=== PATIENT | female | born 1990 | race Caucasian/White ===

== ENCOUNTER 2018-11-07 14:20 | Outpatient (CLI) | payer OTHER, SELFPAY ==
[2018-11-07 15:04] LABS: Abs Immature Grans 0.04 k/cumm (0.0-0.09); Absolute Basophil Count 0.02 k/cumm (0.0-0.2); Absolute Eosinophil Count 0.08 k/cumm (0.0-0.7); Absolute Lymphocyte Count 2.24 k/cumm (1.2-3.4); Basophils % 0.2; Eosinophils % 0.7; HCT 39.5 % (36.0-46.0); HGB 13.6 g/dL (12.0-15.5); Immature Grans % 0.4; Lymphocytes % 19.9; Mean Corp. HGB Concentration 34.4 g/dL (32.0-36.0); Mean Corpuscular Hemoglobin 30.3 pg (27.0-33.0); Mean Platelet Volume 10.8 fL (8.0-11.0); Monocytes % 5.1; Neutrophils % 73.7; Platelet Count 226 x1000/uL (130-400); RBC 4.49 m/cumm (4.00-5.20); RBC Distribution Width 12.4 % (11.7-14.6); White Blood Cell Count 11.28 k/cumm (4.4-10.8)
[2018-11-07 15:06] LABS: Absolute Monocyte Count 0.58 k/cumm (0.11-0.7); Absolute Neutrophil Count 8.31 k/cumm (1.2-6.7)
[2018-11-07 15:25] LABS: TSH (W/Ref FT4) 0.92 uIU/mL (0.358-3.74)
[2018-11-08 11:10] LABS: Hepatitis B Surface Ag Negative (NEGAT)
[2018-11-08 11:14] LABS: HIV-1/2 Ag & Ab Screen Negative (NEGAT)
[2018-11-08 11:15] LABS: Hepatitis C Ab w Rflx HCV PCR Negative (NEGAT)
[2018-11-08 12:59] LABS: Rubella IgG Ab (UVM) Positive; Syphilis Serology (RPR) Negative (Negative); Varicella IgG Antibody Positive
== END 2018-11-07 14:40 ==
LOC: LBN 16:17 → LBO 11-08 13:57
PROVIDERS: PCP Nurse Practitioner Family; Visit Provider Advanced Practice Midwife
DX: Z34.91 Encounter for supervision of normal pregnancy, unspecified, first trimester (principal); Z01.84 Encounter for antibody response examination; Z11.59 Encounter for screening for other viral diseases; Z11.4 Encounter for screening for human immunodeficiency virus [HIV]
CPT/HCPCS: 36415; 80055; 86787; 86803; 86850; 86900; 86901; 87340; 87389; 82947; 84443; 86592; 86762

== ENCOUNTER 2018-11-07 16:17 | Outpatient (REF) | payer OTHER, SELFPAY ==
[2018-11-07 18:46] LABS: Tricyclic Antidepressants Negative (Negative)
[2018-11-07 20:29] LABS: *AMPHETAMINES SCREEN URINE Negative (Negative); *BARBITURATES SCREEN URINE Negative (Negative); *BENZODIAZEPINES SCREEN URINE Negative (Negative); Cannabinoids THC Negative (Negative); Cocaine Screen,Urine Negative (Negative); METHADONE URINE SCREEN Negative (Negative); OPIATES URINE SCREEN Negative (Negative)
[2018-11-11 16:25] LABS: Chlamydia Result Negative; GC Result Negative; Specimen Description CERVIX
[2018-11-15 10:36] LABS: Buprenorphine Negative; Norbuprenorphine Negative
== END 2018-11-07 16:37 ==
LOC: LBN 16:17
PROVIDERS: PCP Nurse Practitioner Family; Visit Provider Advanced Practice Midwife
DX: Z34.91 Encounter for supervision of normal pregnancy, unspecified, first trimester (principal); Z11.3 Encounter for screening for infections with a predominantly sexual mode of transmission
CPT/HCPCS: 80307; 87491; 87591; 87086

== ENCOUNTER 2018-11-22 02:25 | Outpatient (CLI) | payer OTHER, SELFPAY ==
[2018-11-22 09:09] LABS: Glucose 1 Hour 98 mg/dL
[2018-11-22 12:08] LABS: Glucose 3 Hour 79 mg/dL
== END 2018-11-22 02:45 ==
PROVIDERS: Advanced Practice Midwife; PCP Nurse Practitioner Family; Visit Provider Advanced Practice Midwife
DX: R73.09 Other abnormal glucose (principal)
CPT/HCPCS: 36415; 82951

== ENCOUNTER 2018-12-30 08:26 | Outpatient (CLI) | payer OTHER, SELFPAY ==
[2018-12-30 08:55] LABS: Kit/Specimen SENT
== END 2018-12-30 08:46 ==
PROVIDERS: PCP Nurse Practitioner Family; Visit Provider Advanced Practice Midwife
DX: Z34.01 Encounter for supervision of normal first pregnancy, first trimester (principal)
CPT/HCPCS: 36415

== ENCOUNTER 2019-01-17 00:31 | Outpatient (CLI) | payer OTHER, SELFPAY ==
--- NOTE | 2019-01-17 11:45 | DI.US_ITS ---
SYMPTOMS/DIAGNOSIS: 18-WEEK ANATOMY SURVEY, Z34.90 OB ULTRASOUND: Many abnormalities cannot be diagnosed. A normal exam does not exclude a congenital anomaly. Radiology No. [id number] LMP: Exam Date: 01/17/19 [facility] wks days on EDC ([facility]) 06/16/19 Confirmed: HISTORY: PREDICTED GESTATIONAL AGE NUMBER 18+4 weeks with a range of 17+4s weeks to 19+4 weeks. 1 Determined by___1STUS___LMP_X__HISTORY PLACENTA PRESENTATION Grade I Cephalic_X__ Anterior_X__Posterior___ Breech____ Right Left Transverse(head right___ Fundal___Low-lying_X__Previa___ Transverse(head left___ Varying BIOMETRY AMNIOTIC FLUID BPD: 44 mm 19+1 weeks Normal HC: 158 mm 18+5 weeks AC: 138 mm 19+1 weeks FL: 28 mm 18+5 weeks AMNIOTIC FLUID INDEX >26 WK CRL: mm weeks Cisterna Magna: 2.1 mm CI: 91 RUQ: LUQ Cerebellum: 1.9 cm EFW: 266 grams Percentile: 69th RLQ: LLQ Total: cms Composite AGE= 19 wks EDC by US: 06/13/19 BIOPHYSICAL PROFILE ANATOMY IDENTIFIED SCORE 0/2 Heart: 4-Chamber_X__Rate:BPM LVOT:___X RVOT:__X Amniotic Fluid(>2cms)____ Stomach:_X Kidneys:___X____ Respirations (>30 secs) Bladder:__X Post. Fossa:___X Body Flex/Extension 3-vessel cord:____X___Ventricles:____X Cord insertion:__X___ Lips:_X___ Extremity Flex/Extension Spinal morphology:_X Nose:__X___ Total Score= Palate:___X____ NS=not seen COMMENTS: The cervix shows a normal length of 7 cm. The placenta is anterior. There is a low-lying placenta with the tip 9 mm from the internal os. The fetus is in cephalic position. The biometric measurements correspond to 19 weeks 0 days. No abnormality is seen. The amniotic fluid amount appears normal. IMPRESSION: Low-lying placenta.
[2019-01-20 16:04] LABS: AFP 54.6 ng/mL; Calculated age at EDD 26 years; Cigarette smoking status non-smoker; GA used in risk estimate Scan estimate; IVF Pregnancy No; Initial or repeat testing Initial testing; Insulin dependent diabetes No; Maternal Weight 203 lbs; Number of Fetuses 1; Physician Phone Number 802-748-7300; Prev Pregnancy w/NTD No; RECOMMENDED FOLLOW UP None.; Results Summary Normal risk
[2019-01-22 22:52] LABS: Result Summary NEGATIVE; Specimen WB Whole Blood
[2019-01-23 14:36] LABS: Specimen WB Whole Blood
== END 2019-01-17 00:51 ==
PROVIDERS: Advanced Practice Midwife; PCP Nurse Practitioner Family; Visit Provider Advanced Practice Midwife
DX: Z34.92 Encounter for supervision of normal pregnancy, unspecified, second trimester (principal); O44.42 Low lying placenta NOS or without hemorrhage, second trimester; Z36.89 Encounter for other specified antenatal screening
CPT/HCPCS: 36415; 81329; 76805; 81220; 82105

== ENCOUNTER 2019-03-28 01:45 | Outpatient (CLI) | payer OTHER, SELFPAY ==
--- NOTE | 2019-03-28 11:04 | DI.US_ITS ---
SYMPTOMS/DIAGNOSIS: LOW-LYING PLACENTA, CHECK FOR MIGRATION, Z34.90 LIMITED OB ULTRASOUND: Predicted Gestational Age: Indication/History: 28+4 Wks Range: to Prior US done on: 06/16/18 Determined by: First US LMP History EDC by prior US: For multiple gestations: Baby PLACENTA: Grade: II-III Location: X Anterior Posterior PRESENTATION: RT LT LOW LYING PREVIA Cephalic X Trans (Head RT LT ) Varied Breech BIOMETRY: Anatomy Identified: BPD: mm wks 4 chamber Heart Heart Rate 144 BPM HC: mm wks LVOT Post Fossa AC: mm wks RVOT Ventricles FL: mm wks Stomach Nose Bladder Lips Cisterna Magna: mm CI: Kidneys Palate Cerebellum: mm 3 vessel cord Spine EFW: grms % Cord Insertion NS= not seen Composite Age (US) wks Many abnormalities cannot be diagnosed. A normal exam does not exclude congenital abnormality. EDC by US Amniotic Fluid Index: Normal COMMENTS: Cervical length 4.6 cm, placental tip to internal os 7.7 cm RUQ: LUQ: RLQ: LLQ: Total: cm Biophysical Profile: Score 0/2 RAISSA (>2cm) Respirations (>30 sec) Body flexion/extension Extremity flexion/extension TOTAL SCORE OB ultrasound was performed utilizing third trimester protocol. Previous examination showed low-lying placenta. Placenta is posterior and is remote from the cervical os. No placenta previa. biometry is consistent with gestational age of 33 weeks 2 days and an EDC of 05/14/19. Estimated weight is 2115 g, which is at the 61st percentile for predicted gestational age. There is visually a normal quantity of amniotic fluid and the RAISSA is 8. cardiac activity observed at a rate of 144 bpm.
[2019-03-28 11:14] LABS: HCT 35.8 % (36.0-46.0); HGB 12.4 g/dL (12.0-15.5); Mean Corp. HGB Concentration 34.6 g/dL (32.0-36.0); Mean Corpuscular Hemoglobin 30.7 pg (27.0-33.0); Mean Corpuscular Volume 88.6 fL (80-95); Mean Platelet Volume 11.7 fL (8.0-11.0); Platelet Count 201 x1000/uL (130-400); RBC 4.04 m/cumm (4.00-5.20); RBC Distribution Width 13.3 % (11.7-14.6); White Blood Cell Count 15.28 k/cumm (4.4-10.8)
[2019-03-28 11:26] LABS: Glucose,1 Hr (Glucola) 94 mg/dL (80-140)
== END 2019-03-28 02:05 ==
PROVIDERS: PCP Nurse Practitioner Family; Visit Provider Advanced Practice Midwife
DX: Z34.93 Encounter for supervision of normal pregnancy, unspecified, third trimester (principal); Z36.2 Encounter for other antenatal screening follow-up
CPT/HCPCS: 36415; 76815; 82950; 85027

== ENCOUNTER 2019-05-23 18:15 | Outpatient (REF) | payer OTHER, SELFPAY | END 2019-05-23 18:35 | LOC: LBN 18:15 | PROVIDERS: PCP Nurse Practitioner Family; Visit Provider Advanced Practice Midwife | DX: Z34.93 Encounter for supervision of normal pregnancy, unspecified, third trimester (principal); Z36.85 Encounter for antenatal screening for Streptococcus B | CPT/HCPCS: 87081 ==

== ENCOUNTER 2019-05-30 16:42 | Outpatient (REF) | payer OTHER, SELFPAY ==
[2019-05-30 17:23] LABS: *AMPHETAMINES SCREEN URINE Negative (Negative); *BARBITURATES SCREEN URINE Negative (Negative); *BENZODIAZEPINES SCREEN URINE Negative (Negative); Cannabinoids THC Negative (Negative); Cocaine Screen,Urine Negative (Negative); METHADONE URINE SCREEN Negative (Negative); OPIATES URINE SCREEN Negative (Negative)
[2019-05-30 17:24] LABS: Tricyclic Antidepressants Negative (Negative)
[2019-06-05 12:25] LABS: Buprenorphine Negative; Norbuprenorphine Negative
== END 2019-05-30 17:02 ==
LOC: LBN 16:42
PROVIDERS: PCP Nurse Practitioner Family; Visit Provider Advanced Practice Midwife
DX: Z34.93 Encounter for supervision of normal pregnancy, unspecified, third trimester (principal)
CPT/HCPCS: 80307

== ENCOUNTER 2019-06-18 06:49 | Inpatient (IN) | payer OTHER, SELFPAY ==
[2019-06-18 07:41] LABS: ROM Plus Positive
[2019-06-18 08:58] LABS: HCT 34.8 % (36.0-46.0); HGB 11.6 g/dL (12.0-15.5); Mean Corp. HGB Concentration 33.3 g/dL (32.0-36.0); Mean Corpuscular Hemoglobin 29.1 pg (27.0-33.0); Mean Corpuscular Volume 87.2 fL (80-95); Mean Platelet Volume 12.5 fL (8.0-11.0); Platelet Count 170 x1000/uL (130-400); RBC 3.99 m/cumm (4.00-5.20); RBC Distribution Width 13.2 % (11.7-14.6); White Blood Cell Count 24.06 k/cumm (4.4-10.8)
[2019-06-18] MEDS: Oxytocin 10 UNITS/ML VIAL IM (10:10)
[2019-06-18] MEDS: Lidocaine 1% Multi-Dose 20 ML VIAL (10:10)
[2019-06-18] MEDS: Hamamelis Leaf/Glycerin 100 EACH BOX PR (16:13)
[2019-06-18] MEDS: Ibuprofen 600 MG TAB PO (23:31)
[2019-06-18] MEDS: Acetaminophen 325 MG TAB 650 MG PO (23:32)
[2019-06-19 07:14] LABS: HCT 26.6 % (36.0-46.0); HGB 8.7 g/dL (12.0-15.5); Mean Corp. HGB Concentration 32.7 g/dL (32.0-36.0); Mean Corpuscular Hemoglobin 28.9 pg (27.0-33.0); Mean Corpuscular Volume 88.4 fL (80-95); Mean Platelet Volume 12.3 fL (8.0-11.0); Platelet Count 167 x1000/uL (130-400); RBC 3.01 m/cumm (4.00-5.20); RBC Distribution Width 13.2 % (11.7-14.6); White Blood Cell Count 22.51 k/cumm (4.4-10.8)
[2019-06-19] MEDS: Acetaminophen 325 MG TAB 650 MG PO (16:13)
[2019-06-19] MEDS: Ibuprofen 600 MG TAB PO (16:14)
== END 2019-06-20 13:30 | disposition home or self-care (01) | DRG 807 ==
PROVIDERS: Advanced Practice Midwife; Admitting Provider Advanced Practice Midwife; PCP Nurse Practitioner Family; Visit Provider Advanced Practice Midwife
DX: O70.1 Second degree perineal laceration during delivery (principal); Z37.0 Single live birth; Z3A.40 40 weeks gestation of pregnancy; O48.0 Post-term pregnancy; O69.3XX0 Labor and delivery complicated by short cord, not applicable or unspecified; O90.81 Anemia of the puerperium; D64.89 Other specified anemias
CPT/HCPCS: 36415; 84112; 85027; J3490

== ENCOUNTER 2019-07-28 14:29 | Outpatient (CLI) | payer OTHER, SELFPAY ==
[2019-07-28 14:51] LABS: HGB 11.3 g/dL (12.0-15.5); Mean Corp. HGB Concentration 31.4 g/dL (32.0-36.0); Mean Corpuscular Hemoglobin 26.8 pg (27.0-33.0); Mean Corpuscular Volume 85.3 fL (80-95); Mean Platelet Volume 10.8 fL (8.0-11.0); Platelet Count 335 x1000/uL (130-400); RBC 4.22 m/cumm (4.00-5.20); RBC Distribution Width 14.1 % (11.7-14.6); White Blood Cell Count 9.41 k/cumm (4.4-10.8)
[2019-07-28 16:21] LABS: ALT 18 U/L (14-59); Albumin 3.9 g/dL (3.4-5.0); Alkaline Phosphatase 72 U/L (46-116); Anion Gap 11.2 mmol/L (3-11); BUN 18 mg/dL (7-18); Bilirubin, Total 0.2 mg/dL (0.2-1.0); CO2 24.8 mmol/L (21.0-32.0); CREATININE 0.88 mg/dL (0.55-1.02); Chloride 104 mmol/L (98-107); Glucose 90 mg/dL (70-100); Sodium 140 mmol/L (136-145); Total Protein 7.5 g/dL (6.4-8.2)
[2019-07-28 16:38] LABS: AST 10 U/L (15-37)
== END 2019-07-28 14:49 ==
PROVIDERS: PCP Nurse Practitioner Family; Visit Provider Advanced Practice Midwife
DX: Z39.2 Encounter for routine postpartum follow-up (principal); O92.79 Other disorders of lactation
CPT/HCPCS: 36415; 80053; 85027

== ENCOUNTER 2019-09-03 10:26 | Outpatient (CLI) | payer OTHER, SELFPAY ==
[2019-09-03 10:48] LABS: HCT 39.1 % (36.0-46.0); HGB 12.6 g/dL (12.0-15.5); Mean Corp. HGB Concentration 32.2 g/dL (32.0-36.0); Mean Corpuscular Hemoglobin 26.5 pg (27.0-33.0); Mean Corpuscular Volume 82.1 fL (80-95); Mean Platelet Volume 11.1 fL (8.0-11.0); Platelet Count 295 x1000/uL (130-400); RBC 4.76 m/cumm (4.00-5.20); White Blood Cell Count 9.42 k/cumm (4.4-10.8)
[2019-09-03 11:37] LABS: ALT 16 U/L (14-59); AST 9 U/L (15-37); Albumin 4.1 g/dL (3.4-5.0); Alkaline Phosphatase 73 U/L (46-116); Anion Gap 10.1 mmol/L (3-11); BUN 13 mg/dL (7-18); Bilirubin, Total 0.3 mg/dL (0.2-1.0); CO2 26.9 mmol/L (21.0-32.0); Calcium 9.1 mg/dL (8.5-10.1); Chloride 105 mmol/L (98-107); Glucose 85 mg/dL (70-100); Sodium 142 mmol/L (136-145); Total Protein 7.7 g/dL (6.4-8.2)
== END 2019-09-03 10:46 ==
PROVIDERS: PCP Nurse Practitioner Family; Visit Provider Advanced Practice Midwife
DX: R60.9 Edema, unspecified
CPT/HCPCS: 36415; 80053; 85027

== ENCOUNTER 2019-09-04 14:25 | Outpatient (REF) | payer OTHER, SELFPAY ==
[2019-09-04 22:52] LABS: C-Reactive Protein 0.91 mg/dL (0.0-0.3)
[2019-09-04 23:25] LABS: ESR 24 mm/hr (0-20)
[2019-09-07 19:01] LABS: Anaplasma phagocytophilum Negative (Negative); B. miyamotoi PCR Negative (Negative); Babesia divergens/MO-1 Negative (Negative); Babesia duncani Negative (Negative); Babesia microti Negative (Negative); Ehrlichia chaffeensis Negative (Negative); Ehrlichia ewingii/canis Negative (Negative); Ehrlichia muris eauclairensis Negative (Negative)
[2019-09-08 09:29] LABS: Cyclic Citrullinated Peptide <2.5 U/mL (<5.0)
[2019-09-08 10:41] LABS: Rheumatoid Factor 8 IU/mL (<12.5)
[2019-09-08 13:15] LABS: Lyme Ab w Rflx to Lyme Confirm Negative
[2019-09-09 14:13] LABS: ANA Interpretation Positive (NEGAT); ANA Titer Pattern SEE COMMENTS
== END 2019-09-04 14:45 ==
LOC: NCHCN 14:25
PROVIDERS: PCP Nurse Practitioner Family; Visit Provider Nurse Practitioner Family
DX: M25.561 Pain in right knee (principal); M25.562 Pain in left knee
CPT/HCPCS: 85652; 86200; 87798; 86038; 86140; 86431; 86618

== ENCOUNTER 2020-06-16 12:33 | Outpatient (REF) | payer OTHER, SELFPAY ==
--- NOTE | 2020-06-16 10:30 | PAPFT_PTH ---
PATIENT: Katarina Sánchez LOC: [facility]#:[id number] AGE/SX: 29/F ROOM: RE06/16/[address]: Cindy Ravi : 1990 BED: DIS: 06/16/2020 SPEC #: [id number] RECD: 06/17/20 12:56 STATUS: YOLY REStephanie #: [id number] ONDINA: 06/16/20 10:[address]: Cindy Ravi DEPT: [facility] Cytology RECD BY: Susan Saunders ENTERED: 06/17/20 12:57 SP TYPE: PAPFT OTHR DR: Estela Gerber Tissues: 1 - CX/ENDOCX FOR PAP SMEARS Procedures: PAP THIN PREP/[facility] Screening Comments: [id number] (CHLAMYDIA/GC)
[2020-06-18 14:31] LABS: Chlamydia Result Negative (Negative); GC Result Negative (Negative)
== END 2020-06-16 12:53 ==
LOC: NCHCN 12:33
PROVIDERS: PCP Nurse Practitioner Family
DX: Z11.3 Encounter for screening for infections with a predominantly sexual mode of transmission (principal)
CPT/HCPCS: 87491; 87591; 88142

== ENCOUNTER 2020-07-13 01:05 | Outpatient (CLI) | payer OTHER, SELFPAY ==
--- NOTE | 2020-07-13 07:00 | DI.US_ITS ---
EXAM: US SOFT TISS EXTREMITY/GROIN CLINICAL HISTORY: Right groin mass,R19.09 TECHNIQUE: Ultrasound performed using standard protocol. COMPARISON: US US OB 2-3 trimester from 03/28/2019 FINDINGS: Ultrasound examination of the right inguinal region was performed to evaluate questionable palpable a bnormality. The palpable abnormality corresponds to an 11 x 5 x 14 millimeter in diameter lymph node with normal anatomy, this appears to be a bilobed node. Smaller lymph nodes with an unremarkable ar chitecture also seen in this region. No non valentin mass identified. No hernia seen. IMPRESSION: Unremarkable appearance right inguinal lymph nodes as described above. DATA REPOSITORY:
== END 2020-07-13 01:25 ==
PROVIDERS: PCP Nurse Practitioner Family; Visit Provider Surgery
DX: R19.09 Other intra-abdominal and pelvic swelling, mass and lump (principal)
CPT/HCPCS: 76882

== ENCOUNTER 2020-08-23 01:31 | Outpatient (CLI) | payer OTHER, SELFPAY ==
[2020-08-23 16:17] LABS: Abs Immature Grans 0.03 10^3/uL (0.0-0.06); Absolute Basophil Count 0.02 10^3/uL (0.0-0.2); Absolute Eosinophil Count 0.04 10^3/uL (0.0-0.7); Absolute Lymphocyte Count 2.61 10^3/uL (1.2-3.4); Basophils % 0.2; Eosinophils % 0.3; HCT 40.5 % (36.0-46.0); Immature Grans % 0.2; Lymphocytes % 21.2; MCHC 34.6 % (32.0-36.0); MCV 86.7 fL (80-95); MPV 10.9 fL (8.0-11.0); Monocytes % 4.5; Neutrophils % 73.6; Nucleated RBC 0 %; Platelet Count 270 10^3/uL (130-400); RBC 4.67 10^6/uL (3.93-5.22); RDW 12.2 % (11.7-14.6); RDW-SD 38.5 fL; WBC 12.32 10^3/uL (4.4-10.8)
[2020-08-23 16:18] LABS: Absolute Monocyte Count 0.55 10^3/uL (0.1-0.8); Absolute Neutrophil Count 9.07 10^3/uL (1.2-6.7)
[2020-08-23 17:28] LABS: TSH (W/Ref FT4) 0.69 uIU/mL (0.36-3.74)
[2020-08-24 09:06] LABS: Hepatitis B Surface Ag Negative (Negative)
[2020-08-24 09:30] LABS: Hepatitis C Ab w Rflx HCV PCR Negative (Negative)
[2020-08-24 09:40] LABS: HIV-1/2 Ag & Ab Screen Negative (Negative)
[2020-08-24 10:13] LABS: Varicella IgG Antibody Positive (See Note)
[2020-08-24 10:16] LABS: Rubella IgG Ab (UVM) Positive (See Note)
[2020-08-25 10:38] LABS: Syphilis Total Ab w/Reflex Nonreactive (Nonreactive)
== END 2020-08-23 01:51 ==
PROVIDERS: PCP Nurse Practitioner Family; Visit Provider Advanced Practice Midwife
DX: Z34.91 Encounter for supervision of normal pregnancy, unspecified, first trimester (principal); Z11.4 Encounter for screening for human immunodeficiency virus [HIV]; Z11.59 Encounter for screening for other viral diseases; Z01.84 Encounter for antibody response examination; R53.83 Other fatigue
CPT/HCPCS: 36415; 86787; 86803; 86850; 86900; 86901; 87340; 87389; 84443; 85025; 86762; 86780

== ENCOUNTER 2020-08-23 16:49 | Outpatient (REF) | payer OTHER, SELFPAY ==
[2020-08-23 18:56] LABS: *AMPHETAMINES SCREEN URINE Negative (Negative); *BARBITURATES SCREEN URINE Negative (Negative); *BENZODIAZEPINES SCREEN URINE Negative (Negative); Cannabinoids THC Negative (Negative); Cocaine Screen,Urine Negative (Negative); METHADONE URINE SCREEN Negative (Negative); OPIATES URINE SCREEN Negative (Negative)
[2020-08-23 19:05] LABS: Tricyclic Antidepressants Negative (Negative)
[2020-08-25 15:15] LABS: Chlamydia Result Negative (Negative); GC Result Negative (Negative)
[2020-08-28 10:26] LABS: Buprenorphine Negative; Norbuprenorphine Negative
== END 2020-08-23 17:09 ==
LOC: LBN 16:49
PROVIDERS: PCP Nurse Practitioner Family; Visit Provider Advanced Practice Midwife
DX: Z34.91 Encounter for supervision of normal pregnancy, unspecified, first trimester (principal); Z11.3 Encounter for screening for infections with a predominantly sexual mode of transmission
CPT/HCPCS: 80307; 87491; 87591; 87086

== ENCOUNTER 2020-09-22 03:05 | Outpatient (CLI) | payer OTHER, SELFPAY ==
[2020-09-22 09:35] LABS: Kit/Specimen SENT
[2020-09-22 09:54] LABS: Glucose,1 Hr (Glucola) 108 mg/dL (80-140)
== END 2020-09-22 03:25 ==
PROVIDERS: PCP Nurse Practitioner Family; Visit Provider Advanced Practice Midwife
DX: Z34.92 Encounter for supervision of normal pregnancy, unspecified, second trimester (principal); Z3A.14 14 weeks gestation of pregnancy
CPT/HCPCS: 36415; 82950

== ENCOUNTER 2020-10-20 00:44 | Outpatient (CLI) | payer OTHER, SELFPAY ==
--- NOTE | 2020-10-20 08:15 | DI.US_ITS ---
EXAM: US OB 2-3 TRIMESTER CLINICAL HISTORY: anatomy scan,Z34.90 TECHNIQUE: Ultrasound performed using standard protocol. COMPARISON: US US SOFT TISS EXTREMITY/GROIN from 07/13/2020 FINDINGS: Ob ultrasound was performed utilizing 2nd trimester protocol. biometry is consistent with gest ational age of 19 weeks 3 days and EDC of March 13, 2021. There is a marginal cord insertion with the cord located approximately 16 millimeters from the placen jimmy margin. There is a three-vessel cord. There is no placenta previa. Placenta is anterior. There is visually a normal quantity of amniotic fluid. anomaly screen is within normal limits as per the attached checklist. heart rate is 147 BPM. IMPRESSION: Nineteen week 3 day gestational. Marginal umbilical cord insertion noted, [address] acental margin. Umbilical cord is otherwise unremarkable. DATA REPOSITORY:
== END 2020-10-20 01:04 ==
PROVIDERS: PCP Nurse Practitioner Family; Visit Provider Advanced Practice Midwife
DX: Z34.92 Encounter for supervision of normal pregnancy, unspecified, second trimester (principal)
CPT/HCPCS: 76805

== ENCOUNTER 2020-12-29 03:01 | Outpatient (CLI) | payer OTHER, SELFPAY ==
[2020-12-29 08:40] LABS: HCT 35.8 % (36.0-46.0); HGB 12.1 g/dL (11.2-15.7); MCH 30.7 pg (27.0-33.0); MCHC 33.8 % (32.0-36.0); MCV 90.9 fL (80-95); MPV 11.6 fL (8.0-11.0); Platelet Count 195 10^3/uL (130-400); RBC 3.94 10^6/uL (3.93-5.22); RDW 13.5 % (11.7-14.6); RDW-SD 45.1 fL; WBC 16.46 10^3/uL (4.4-10.8)
[2020-12-29 08:47] LABS: Glucose,1 Hr (Glucola) 119 mg/dL (80-140)
== END 2020-12-29 03:02 | disposition home or self-care (01) ==
LOC: LBO 03:01
PROVIDERS: PCP Nurse Practitioner Family; Visit Provider Advanced Practice Midwife
DX: Z34.93 Encounter for supervision of normal pregnancy, unspecified, third trimester (principal); Z3A.28 28 weeks gestation of pregnancy
CPT/HCPCS: 36415; 82950; 85027

== ENCOUNTER 2021-01-25 01:36 | Outpatient (CLI) | payer OTHER, SELFPAY ==
--- NOTE | 2021-01-25 06:51 | DI.US_ITS ---
EXAM: US OB RAISSA WEIGHT CLINICAL HISTORY: 32 wk growth and RAISSA,O43.199. TECHNIQUE: Transabdominal obstetrical ultrasound performed. COMPARISON: US US OB 2-3 TRIMESTER from 10/20/2020 FINDINGS: Transabdominal obstetrical ultrasound performed. FINDINGS: Number of fetuses: One. position: Cephalic. Placental location: Anterior. No evidence of previa. The placental cord insertion site is 1.5 cm fr om the placental border. BIOMETRIC DATA: BPD: 8.2 mm = 33 weeks 1 day HC: 298 mm = 33 weeks 0 days AC: 296 mm = 33 weeks 4 days FL: 68 mm = 34 weeks 5 days EFW: 2273 grms 93% Composite Age: 33 weeks 4 days EDC: 03/11/2021 Heart Rate: 149BPM Amniotic fluid index: 17.1 cm. Visually, amount of fluid is within normal limits. IMPRESSION: 1. Single live intrauterine gestation as above. 2. Findings suspicious for marginal cord insertion. 3. Estimated weight is 2273gms. 4. Amniotic fluid index is 17.1 cm. Visually within normal limits. DATA REPOSITORY:
== END 2021-01-25 01:56 ==
PROVIDERS: PCP Nurse Practitioner Family; Visit Provider Advanced Practice Midwife
DX: O43.893 Other placental disorders, third trimester (principal)
CPT/HCPCS: 76816

== ENCOUNTER 2021-02-23 10:46 | Outpatient (REF) | payer OTHER, SELFPAY | END 2021-02-23 10:47 | disposition home or self-care (01) | LOC: LBN 10:46 | PROVIDERS: PCP Nurse Practitioner Family; Visit Provider Advanced Practice Midwife | DX: Z34.93 Encounter for supervision of normal pregnancy, unspecified, third trimester (principal); Z36.85 Encounter for antenatal screening for Streptococcus B; Z3A.36 36 weeks gestation of pregnancy | CPT/HCPCS: 87081 ==

== ENCOUNTER 2021-03-24 07:24 | Inpatient (IN) | payer OTHER, SELFPAY ==
[2021-03-24] VITALS (10 sets, daily range): BP systolic 117–132; BP diastolic 69–80; PULSE 93–109; RESP 14–16; TEMP 36.2–37.1
[2021-03-24 08:18] LABS: Source Nasal/Nares
[2021-03-24 08:57] LABS: COVID-19 PCR Negative (Negative)
--- NOTE | 2021-03-24 09:01 | HPE_ITS ---
Date of service: 03/24/21 Time of Service: 09:02 Assessment and Plan Assessment and plan (1) Spontaneous onset of labor: Status: Acute Assessment and plan: Admit to Center. SVE and rupture of forebag and clear fluid noted. Comfort measures. Covid- 19 test. Anticipate . (2) membranes, rupture: Status: Acute OB-HPI Labor/Delivery History of Present Illness Reason for Visit: Spontaneous Rupture of Membranes Chief Complaint: Uterine Contractions; Suspected Rupture of Membranes (contractions) , Associated Signs and Symptoms of Suspected ROM: no. LORAINE Calculator Estimated Delivery Date Method Current WG Current Estimate 03/23/21 Ultrasound #1 40w 1d Other Estimates 03/16/21 LMP (Uncertain) 41w 1d Comments: Spontaneous rupture of membranes at 0020. Clear fluid. Katarina called at 0640 with mild contractions. She continues leaking clear fluid. Contractions are mild strength. History of Present Expected Delivery Route/Plan - CNM FOB - Gabino Sánchez ( second baby together) BG- Tee Would like the tub for comfort, prefers no epidural. GBS negative Specific Issues/Plan 1. BMI> 30 needs gct; result = 108, 28 weeks - 119 2. CF/SMA Neg/Neg from previous . 3. Mcgill declined as of IOB, pt will pursue w/ [facility] and notify cnm by 08/26/20. al 3a. Mcgill drawn 09/22; results are for low prob x3, female 4. marginal cord insertion - growth US at 32 weeks. 01/25/21 93% growth, cord insertion 1.5cm from placental edge 4a. EFW 93%ile - consider repeat US in 4 weeks if indicated 4b. At 37 wks, S=D, no concerns about IUGR, jk [facility] Medical History (Updated 03/24/21 @ 09:05 by Valeria Wood CNM) Asthma Asthma (07/18/12) MILD to mod persistent Dyspepsia Fibrocystic breast changes Fibrocystic disease of breast Seen Dr Mega Brice Gingivitis Headache (08/19/14) after concussion History of concussion Hyperlipidemia Inguinal lymphadenopathy Obesity Surgical History Tonsillectomy 03/2013 Family History (Updated 08/23/20 @ 15:23 by Julieta Hendricks CNM) Maternal Grandfather Colon cancer Paternal Grandfather Prostate cancer Maternal Grandmother Cervical cancer Bladder cancer Paternal Grandmother Lung cancer Father Thyroid disease Social History Smoking/Tobacco Use Status: Never Smoking risk assessment performed?: Yes Alcohol Intake: former (prior to knowledge of ) Details: ONE DRINK A WEEK Drug use: Never Substance use type: does not use Household members: spouse Number of Children: 0 What type of physical activity do you participate in: walking Duration: 30-45 minutes/day Frequency: daily Seatbelt use: always Do you feel safe in your relationship?: Yes Female Reproductive History Menstrual control method: none History History 2 Para 1 Hx # Term Pregnancies 1 Multiple births 0 Hx # Pregnancies 0 Ectopic pregnancies 0 AB induced 0 Hx Number of Living Children 1 AB spontaneous 0 Past Pregnancies Del. Date GA/Weeks # Outcome Route Wgt Sex Labor Lgth Anesthes ia Location Prov [facility] 06/18/19 40 No Successful vaginal 8 lb 10 oz Male 10.5 [place]. KATYA Wood Delivery Date: 06/18/19 Nitrous for pain relief, shallow 2nd degree laceration, sutured. Rosenbaum. GBS pos. Valeria Wood [place] Allergies and Home Medications Allergies Allergy/AdvReac Type Severity Reaction Status Date / Time nickel Allergy Intermediate RASH Verified 03/23/21 11:11 Home Medications Medication Instructions Recorded Confirmed Type albuterol sulfate [Proventil Hfa] 2 puff INHALATION Q4H PRN #1 01/06/15 03/24/21 History inhaler prenat.vits,amalia,ygv-cdah-cfeor 2 tab PO DAILY 12/20/18 03/24/21 History montelukast 10 mg tablet 10 mg PO HS PRN #90 tab 07/28/19 03/24/21 History ferrous sulfate 325 mg (65 mg 325 mg PO DAILY #60 tab 12/15/20 03/24/21 Rx iron) tablet Exam Physical Exam Vital signs: Temp Pulse Resp BP 98.8 F 93 H 16 132/80 03/24/21 08:29 03/24/21 08:29 03/24/21 08:29 03/24/21 08:29 Vital Signs Reviewed: Yes Constitutional Constitutional: no acute distress Detailed Labor and Delivery Exam Dilation: 2 Effacement (%): 50 station: -1 Cervix position: posterior Consistency: soft Mcintyre Score: Cervical Points Exam 0 1 2 3 Dilation Closed 1-2cm 3-4 cm 5-6cm Effacement 0-30% 40-50% 60-70% 80% Consistency Firm Medium Soft Station -3 -2 -1,0 +1,+2 Position Posterior Mid Anterior Amniotic Membrane Status: Ruptured Rupture Method: Spontaneous Amniotic Fluid: Clear Pooling: Positive Nitrazine: Positive Contraction Intensity: Mild/Moderate Fetus A Heart Rate Baseline: 140 Monitor Accelerations: 15 X 15 Monitor Decelerations: None Variability: Moderate (6-25 BPM) Presentation: Vertex Categories: Category I Date of Membrane Rupture: 03/24/21 Time of Membrane Rupture: 08:55 Respiratory Exam Respiratory Exam: Normal Cardiovascular Exam Cardiovascular Exam: Normal Abdominal Exam Abdominal Exam: Normal Exam Exam: Normal Extremities Exam Extremities Exam: Normal Skin Exam Skin Exam: Normal Psychiatric Exam Psychiatric Exam: Normal Risk Assessment Risk for Shoulder Dystocia Historical/Initial OB: POSITIVE FOR: Pre- BMI>30; NEGATIVE FOR: Pelvic Abnormality, Previous Shoulder Dystocia or Previous Macrosomia 40 Weeks: NEGATIVE FOR: EFW> 4500 gms, Maternal Weight Gain >40lb or Post Dates Increased Risk?: No Counseling: IOB bmi >30 Date/Initial: 08/23/20 al Risk for Pre-Eclampsia Daily Dose ASA Indicated: No Date Initiated/Initials: 11/07/18 al Yes, if one or more: NEGATIVE FOR: Hx Pre-E/Gest HTN, Chronic HTN, Multiple Gestation, Pre-gestational DM, Renal Disease, Systemic Lupus or APA Syndrome Yes, if 2 or more: NEGATIVE FOR: Nulliparity, Age>= 35 yrs, >10yr btwn pregnancies, ethinicty, Mother/Sister w/ Pre-E or Previous IUGR Risk for Post- Hemorrhage Initial: NEGATIVE FOR: Multiple Gestation, Previous PPH, Known Clotting Deficiency, Grand Multiparity or Anticoagulation At Risk?: No Risks Reviewed Risks Reviewed Upon Admission: Yes
[2021-03-24 09:23] LABS: HCT 39.9 % (36.0-46.0); HGB 13.1 g/dL (11.2-15.7); MCH 29.4 pg (27.0-33.0); MCHC 32.8 % (32.0-36.0); MCV 89.7 fL (80-95); MPV 13.1 fL (8.0-11.0); Platelet Count 169 10^3/uL (130-400); RBC 4.45 10^6/uL (3.93-5.22); RDW 13.5 % (11.7-14.6); RDW-SD 43.7 fL; WBC 19.52 10^3/uL (4.4-10.8)
--- NOTE | 2021-03-24 11:38 | W.PM.OBNL1 ---
Date of service: 03/24/21 Time of Service: 11:39 Pelvic Exam Dilation: 2 Effacement (%): 60 station: -2 Cervix Position: posterior Consistency: soft Vaginal Exam Presentation: Cephalic Pooling: Positive Contractions Monitor Mode: External Intensity: Mild/Moderate Fetus A Monitor: External (US) Heart Rate Baseline: 130 Presentation: Vertex Variability: Moderate (6-25 BPM) Categories: Category I FHR Rhythm: Regular Characteristics: Normal Accelerations: 15 X 15 Decelerations: None Assessment and Plan Assessment and plan (1) membranes, rupture: Status: Acute Assessment and plan: Discussed expectant management or cervical ripening with medication. Katarina would like to proceed with cervical ripening. misoprostol ordered. Patient's status reviewed with Dr. Hernandez. Anticipate . Objective Abnormal lab results 03/24/21 Range/Units 09:12 WBC 19.52 H (4.4-10.8) 10^3/uL MPV 13.1 H (8.0-11.0) fL Temp Pulse Resp BP 98.6 F 95 H 14 117/74 03/24/21 11:03 03/24/21 11:03 03/24/21 11:03 03/24/21 11:03 Laboratory Results WBC 19.52 10^3/uL (4.4-10.8) H 03/24/21 09:12 RBC 4.45 10^6/uL (3.93-5.22) 03/24/21 09:12 Hgb 13.1 g/dL (11.2-15.7) 03/24/21 09:12 Hct 39.9 % (36.0-46.0) 03/24/21 09:12 MCV 89.7 fL (80-95) 03/24/21 09:12 MCH 29.4 pg (27.0-33.0) 03/24/21 09:12 MCHC 32.8 % (32.0-36.0) 03/24/21 09:12 RDW 13.5 % (11.7-14.6) 03/24/21 09:12 Plt Count 169 10^3/uL (130-400) 03/24/21 09:12 MPV 13.1 fL (8.0-11.0) H 03/24/21 09:12 COVID-19 Source Nasal/nares 03/24/21 07:55 SARS-CoV-2 (PCR) Negative (Negative) 03/24/21 07:55 Patient ABO/Rh A Positive 03/24/21 09:12 Antibody Screen Negative 03/24/21 09:12 Subjective Patient Reports: No new Complaints Interval history since last seen: Katarina is resting, ambulating and using the ball for comfort. Her contractions remain mild and every 7 minutes. She is fatigued. Results Hemoglobin/Hematocrit: Hgb 13.1 g/dL (11.2-15.7) 03/24/21 09:12 Hct 39.9 % (36.0-46.0) 03/24/21 09:12 Abnormal Lab Findings: Abnormal Labs 03/24/21 09:12 WBC 19.52 H MPV 13.1 H
[2021-03-24] MEDS: miSOPROStol 25 MCG TAB (12:09)
--- NOTE | 2021-03-24 15:51 | W.PM.OBNL1 ---
Date of service: 03/24/21 Time of Service: 15:51 Contractions Monitor Mode: External Contraction Frequency(min): q 10-30 monutes Intensity: Mild/Moderate Fetus A Monitor: External (US) Heart Rate Baseline: 130 Variability: Moderate (6-25 BPM) Categories: Category I FHR Rhythm: Regular Characteristics: Normal Accelerations: 15 X 15 Decelerations: Variable Recurrence: Intermittent Assessment and Plan Assessment and plan (1) membranes, rupture: Status: Acute Assessment and plan: Discussed continuing misoprostol PO and Katarina agrees. Will repeat misoprostol PO, 50 mcg dose this time. Anticipate , comfort measures Objective Abnormal lab results 03/24/21 Range/Units 09:12 WBC 19.52 H (4.4-10.8) 10^3/uL MPV 13.1 H (8.0-11.0) fL Temp Pulse Resp BP 98.0 F 96 H 16 132/78 03/24/21 15:00 03/24/21 15:00 03/24/21 15:00 03/24/21 15:00 Laboratory Results WBC 19.52 10^3/uL (4.4-10.8) H 03/24/21 09:12 RBC 4.45 10^6/uL (3.93-5.22) 03/24/21 09:12 Hgb 13.1 g/dL (11.2-15.7) 03/24/21 09:12 Hct 39.9 % (36.0-46.0) 03/24/21 09:12 MCV 89.7 fL (80-95) 03/24/21 09:12 MCH 29.4 pg (27.0-33.0) 03/24/21 09:12 MCHC 32.8 % (32.0-36.0) 03/24/21 09:12 RDW 13.5 % (11.7-14.6) 03/24/21 09:12 Plt Count 169 10^3/uL (130-400) 03/24/21 09:12 MPV 13.1 fL (8.0-11.0) H 03/24/21 09:12 COVID-19 Source Nasal/nares 03/24/21 07:55 SARS-CoV-2 (PCR) Negative (Negative) 03/24/21 07:55 Patient ABO/Rh A Positive 03/24/21 09:12 Antibody Screen Negative 03/24/21 09:12 Subjective Patient Reports: No new Complaints Interval history since last seen: Katarina received misoprostol 25 mcg at 1209 with no effect. Contractions have subsided. She took a brief nap at 1400. Results Hemoglobin/Hematocrit: Hgb 13.1 g/dL (11.2-15.7) 03/24/21 09:12 Hct 39.9 % (36.0-46.0) 03/24/21 09:12 Abnormal Lab Findings: Abnormal Labs 03/24/21 09:12 WBC 19.52 H MPV 13.1 H
[2021-03-24] MEDS: miSOPROStol 50 MCG TAB PO (15:59)
--- NOTE | 2021-03-24 18:46 | NUR.NOTE ---
RN assisted pt into tub with assistance of support person. Maternal temp 98.1 degrees F, tub temp 98 degrees F. Nursing Note:
--- NOTE | 2021-03-24 19:42 | NUR.NOTE ---
pt got out of tub at 1925. Tub temp 100.00 F. Pt states tub helped with intensity of contractions, just got out to take a breakNursing Note:
--- NOTE | 2021-03-24 20:37 | W.PM.OBNL1 ---
Date of service: 03/24/21 Time of Service: 20:37 Pelvic Exam Dilation: 4 Effacement (%): 90 station: -1 Cervix Position: posterior Consistency: soft Vaginal Exam Presentation: Cephalic Pooling: Positive Comments: palpable forebag of membranes. Attempt to rupture this again with am[place] Contractions Monitor Mode: External Contraction Frequency(min): every 5 minutes Intensity: Moderate Fetus A Monitor: External (US) Heart Rate Baseline: 130 Presentation: Vertex Variability: Moderate (6-25 BPM) Categories: Category I FHR Rhythm: Regular Characteristics: Normal Accelerations: 15 X 15 Decelerations: None Amniotic Membrane Status: Ruptured Amniotic Fluid: Clear Assessment and Plan Assessment and plan (1) Spontaneous onset of labor: Status: Acute Assessment and plan: position changes for comfort (2) Prolonged rupture of membranes: Status: Acute Assessment and plan: Anticipate , nitrous oxide and/or tub for comfort Objective Abnormal lab results 03/24/21 Range/Units 09:12 WBC 19.52 H (4.4-10.8) 10^3/uL MPV 13.1 H (8.0-11.0) fL Temp Pulse Resp BP 97.1 F L 108 H 16 122/70 03/24/21 19:45 03/24/21 19:45 03/24/21 15:00 03/24/21 19:45 Laboratory Results WBC 19.52 10^3/uL (4.4-10.8) H 03/24/21 09:12 RBC 4.45 10^6/uL (3.93-5.22) 03/24/21 09:12 Hgb 13.1 g/dL (11.2-15.7) 03/24/21 09:12 Hct 39.9 % (36.0-46.0) 03/24/21 09:12 MCV 89.7 fL (80-95) 03/24/21 09:12 MCH 29.4 pg (27.0-33.0) 03/24/21 09:12 MCHC 32.8 % (32.0-36.0) 03/24/21 09:12 RDW 13.5 % (11.7-14.6) 03/24/21 09:12 Plt Count 169 10^3/uL (130-400) 05/06/21 09:12 MPV 13.1 fL (8.0-11.0) H 03/24/21 09:12 COVID-19 Source Nasal/nares 03/24/21 07:55 SARS-CoV-2 (PCR) Negative (Negative) 03/24/21 07:55 Patient ABO/Rh A Positive 03/24/21 09:12 Antibody Screen Negative 03/24/21 09:12 Subjective Interval history since last seen: Katarina used the tub after the second dose of misoprostol with good effect. Her contractions became more spaced out in th etub and she retuned to bed. Her contractions became stronger and she requested to use nitrous oxide for pain relief. Results Hemoglobin/Hematocrit: Hgb 13.1 g/dL (11.2-15.7) 03/24/21 09:12 Hct 39.9 % (36.0-46.0) 03/24/21 09:12 Abnormal Lab Findings: Abnormal Labs 03/24/21 09:12 WBC 19.52 H MPV 13.1 H
--- NOTE | 2021-03-24 22:37 | NUR.NOTE ---
Pt back in tub. Pt temp 98.4 degrees F. Tub temp 100.0 degrees F. Nursing Note:
--- NOTE | 2021-03-24 23:08 | NUR.NOTE ---
pt out of tub and back in bed using nitrous. Tub temp 100.0 degrees F. Nursing Note:
[2021-03-25] VITALS (12 sets, daily range): BP systolic 95–134; BP diastolic 48–95; PULSE 75–102; RESP 15–20; TEMP 36.4–37.1; O2SAT 96–98; BMI 38.8
[2021-03-25] MEDS: Lactated Ringers 500 ML IV (00:30)
[2021-03-25] MEDS: Terbutaline 1 MG/ML VIAL (00:41)
--- NOTE | 2021-03-25 00:41 | W.OBCONSULT ---
Date of service: 03/25/21 Time of Service: 00:41 Assessment and Plan Assessment and plan (1) Prolonged rupture of membranes: Status: Acute Assessment and plan: Patient has prolonged rupture of membranes and now with active labor found to be in face presentation with mentum to the transverse right. Due to this malpresentation was benefits and alternatives of section were explained to the patient full informed consent was obtained. She will be taken the operating room for primary section. Anesthesia and OR crew notified and on their way. (2) Marginal insertion of umbilical cord affecting management of mother: Status: Acute (3) Face presentation of fetus: Status: Acute History of Present Illness History of Present Illness Chief Complaint: Term labor, malpresentation Narrative: Patient is a 30-year-old female 2 para 1 who had care via [facility] through [facility]. She presented with spontaneous rupture of membranes. She had no labor at that point she received misoprostol for cervical ripening and augmentation of labor. She progressed to the point that she was 6 cm dilated at that point, was noted to be in the face of presentation with omentum to the right, transverse. I was called to evaluate for the patient for this reason. On examination these findings were confirmed. Due to her mild presentation and risk of inability to flex more during delivery, risk benefits and alternatives of section were discussed with the patient in full informed consent was obtained. Anesthesia has been called and a worker also called. She received Zithromax and Ancef prior to procedure. PAS stockings have been in place. Consults Consult date: 03/25/21 Requesting physician: Valeria Wood Review of Systems Narrative: Patient is uncomfortable with contractions every 6 minutes. She does not have a strong urge to push however does feel significant back pain. Eyes Eyes: Reports system reviewed and no additional complaints, except as documented Cardiovascular Cardiovascular: Reports system reviewed and no additional complaints, except as documented and Denies chest pain Respiratory Respiratory: Reports system reviewed and no additional complaints, except as documented Gastrointestinal Gastrointestinal: Reports system reviewed and no additional complaints, except as documented Genitourinary Genitourinary: Reports as per HPI Neurologic Neurologic: Reports as per HPI [facility] Medical History Asthma Asthma (07/18/12) MILD to mod persistent Dyspepsia Fibrocystic breast changes Fibrocystic disease of breast Seen Dr Mega Brice Gingivitis Headache (08/19/14) after concussion History of concussion Hyperlipidemia Inguinal lymphadenopathy Obesity Ruptured membranes, prolonged Surgical History Tonsillectomy 03/2013 Family History Maternal Grandfather Colon cancer Paternal Grandfather Prostate cancer Maternal Grandmother Cervical cancer Bladder cancer Paternal Grandmother Lung cancer Father Thyroid disease Social History Smoking/Tobacco Use Status: Never Smoking risk assessment performed?: Yes Alcohol Intake: former (prior to knowledge of ) Details: ONE DRINK A WEEK Drug use: Never Substance use type: does not use Household members: spouse Number of Children: 0 What type of physical activity do you participate in: walking Duration: 30-45 minutes/day Frequency: daily Seatbelt use: always Do you feel safe in your relationship?: Yes Female Reproductive History Menstrual control method: none History History 2 Para 1 Hx # Term Pregnancies 1 Multiple births 0 Hx # Pregnancies 0 Ectopic pregnancies 0 AB induced 0 Hx Number of Living Children 1 AB spontaneous 0 Past Pregnancies Del. Date GA/Weeks # Outcome Route Wgt Sex Labor Lgth Anesthesia Location Prov Complic 06/18/19 40 No Successful vaginal 8 lb 10 oz Male 10.5 [place]. KATYA Wood Delivery Date: 06/18/19 Nitrous for pain relief, shallow 2nd degree laceration, sutured. Robi. GBS pos. Valeria Wood Exam Narrative Exam Narrative: Uncomfortable with contractions. Otherwise alert oriented Eyes General: appearance normal, both eyes and all related structures Resp Effort & Inspection: normal respiratory effort Cardio Rate: regular rate Rhythm: regular rhythm Manual OB Exam: dilated 6, effaced 50% and other (Face presentation with omentum to the right anterior) Amniotic Fluid: clear Results Last Vital Signs Temp 98.8 F 03/24/21 23:21 Pulse 109 H 03/24/21 23:10 Resp 16 03/24/21 15:00 BP 124/69 03/24/21 23:10 Labs Result diagrams: 03/24/21 09:12 Labs: Laboratory Results - last 24 hr 0503/24/21 03/24/21 07:55 09:12 09:12 WBC 19.52 H RBC 4.45 Hgb 13.1 Hct 39.9 MCV 89.7 MCH 29.4 MCHC 32.8 RDW 13.5 Plt Count 169 MPV 13.1 H COVID-19 Source Nasal/nares SARS-CoV-2 (PCR) Negative Patient ABO/Rh A Positive Antibody Screen Negative
[2021-03-25] MEDS: ceFAZolin 2 GM/50 ML BAG 100 GM (00:42)
[2021-03-25] MEDS: Sodium Citrate 30 ML CUP (00:45)
--- NOTE | 2021-03-25 00:45 | W.ANESPRE ---
General Info Date of Service Date Performed: 03/25/21 Height: 5 ft 4.96 in Weight: 105.687 kg Body Mass Index (BMI): 38.8 Meds Allergies and Home Medications Allergies Allergy/AdvReac Type Severity Reaction Status Date / Time nickel Allergy Intermediate RASH Verified 03/23/21 11:11 Home Medication Medication Instructions Recorded albuterol sulfate [Proventil Hfa] 2 puff INHALATION Q4H PRN #1 01/06/15 inhaler prenat.vits,amalia,fig-ojdl-tdtpf 2 tab PO DAILY 12/20/18 montelukast 10 mg tablet 10 mg PO HS PRN #90 tab 07/28/19 ferrous sulfate 325 mg (65 mg 325 mg PO DAILY #60 tab 12/15/20 iron) tablet PFSH Active Problems Active Problems: Problem Status Onset Code Face presentation of fetus O32.3XX0 Prolonged rupture of membranes O42.90 membranes, rupture Spontaneous onset of labor Marginal insertion of umbilical cord affecting management of mother O43.199 Z34.90 Right groin mass R19.09 Gingivitis K05.10 Hyperlipidemia E78.5 Dyspepsia R10.13 Obesity E66.9 Inguinal lymphadenopathy R59.0 History of concussion Z87.820 Headache 08/19/14 R51 Asthma 07/18/12 J45.909 Abdominal pain 05/21/13 R10.9 Medical History Medical History (Updated 03/25/21 @ 00:44 by Roseanne Hernandez DO) Asthma Asthma (07/18/12) MILD to mod persistent Dyspepsia Face presentation of fetus Fibrocystic breast changes Fibrocystic disease of breast Seen Dr Mega Brcie Gingivitis Headache (08/19/14) after concussion History of concussion Hyperlipidemia Inguinal lymphadenopathy Obesity Ruptured membranes, prolonged Surgical History Surgical History Tonsillectomy 03/2013 Tobacco Smoking/Tobacco Use Status: Never Alcohol Alcohol Intake: former (prior to knowledge of ) Details: ONE DRINK A WEEK Substance Use Substance use: Never Substance use type: does not use Prental History History 2 Para 1 Hx # Term Pregnancies 1 Multiple births 0 Hx # Pregnancies 0 Ectopic pregnancies 0 AB induced 0 Hx Number of Living Children 1 AB spontaneous 0 Past Pregnancies Del. Date GA/Weeks # Outcome Route Wgt Sex Labor Lgth Anesthesia Location Prov Complic 07/31/19 40 No Successful vaginal 3912.234 g Male 10.5 K. KATYA Wood Delivery Date: 06/18/19 Nitrous for pain relief, shallow 2nd degree laceration, sutured. Robi. GBS pos. Valeria Wood Vital Signs and Lab Results Vital Signs Most Recent Vital Signs in EMR: Most Recent Vital Signs Temp Pulse Resp BP 37.1 C 109 H 16 124/69 03/24/21 23:21 03/24/21 23:10 03/24/21 15:00 03/24/21 23:10 Lab Results Result Diagrams: 03/24/21 09:12 Blood Type / Crossmatch: Patient ABO/Rh A Positive 03/24/21 09:12 03/24/21 Antibody Screen Negative 03/24/21 09:12 03/24/21 Complete Blood Count: White Blood Count 19.52 10^3/uL (4.4-10.8) H 03/24/21 09:12 03/24/21 Red Blood Count 4.45 10^6/uL (3.93-5.22) 03/24/21 09:12 03/24/21 Hemoglobin 13.1 g/dL (11.2-15.7) 03/24/21 09:12 03/24/21 Hematocrit 39.9 % (36.0-46.0) 03/24/21 09:12 03/24/21 Platelet Count 169 10^3/uL (130-400) 03/24/21 09:12 03/24/21 Complete Metabolic Panel: Sodium Level 142 mmol/L (136-145) 09/03/19 10:36 09/03/19 Potassium Level 4.0 mmol/L (3.5-5.1) 09/03/19 10:36 09/03/19 Chloride Level 105 mmol/L (98-107) 09/03/19 10:36 09/03/19 Carbon Dioxide Level 26.9 mmol/L (21.0-32.0) 09/03/19 10:36 09/03/19 Blood Urea Nitrogen 13 mg/dL (7-18) 09/03/19 10:36 09/03/19 Creatinine 0.80 mg/dL (0.55-1.02) 09/03/19 10:36 09/03/19 Calcium Level 9.1 mg/dL (8.5-10.1) 09/03/19 10:36 09/03/19 Albumin 4.1 g/dL (3.4-5.0) 09/03/19 10:36 09/03/19 Glucose Level 85 mg/dL (70-100) 09/03/19 10:36 09/03/19 C-Reactive Protein 0.91 mg/dL (0.0-0.3) H 09/04/19 12:45 09/04/19 Liver Function Panel: Alanine Aminotransferase (ALT/SGPT) 16 U/L (14-59) 09/03/19 10:36 09/03/19 Aspartate Amino Transf (AST/SGOT) 9 U/L (15-37) L 09/03/19 10:36 09/03/19 Coagulation Panel: No Data to Display Cardiac Panel: No Data to Display Arterial Blood Gas: No Data to Display Venous Blood Gas: No Data to Display Pancreas Panel: Lipase 149 U/L (73-393) 01/31/17 18:40 01/31/17 Thyroid Panel: Thyroid Stimulating Hormone (TSH) 0.69 uIU/mL (0.36-3.74) 08/23/20 16:07 08/23/20 Infectious Disease: Coronavirus (COVID-19)(PCR) Negative (Negative) 03/24/21 07:55 03/24/21 Coronavirus 2019 Source Nasal/nares 03/24/21 07:55 03/24/21 Group A Streptococcus Rapid Negative 03/20/13 09:03 03/20/13 HIV (1&2) Ag and Ab, 4th Generation Negative (Negative) 08/23/20 16:07 08/23/20 Hepatitis B Surface Antigen Negative (Negative) 08/23/20 16:07 08/23/20 Hepatitis C Antibody Negative (Negative) 08/23/20 16:07 08/23/20 Syphilis Serology Negative (Negative) 11/07/18 14:48 11/07/18 Neisseria gonorrhoeae DNA Probe Negative (Negative) 08/23/20 15:45 08/23/20 Blood Cultures: No Data to Display Toxicology Panel: Urine Amphetamines Screen Negative (Negative) 08/23/20 15:40 08/23/20 Urine Benzodiazepines Screen Negative (Negative) 08/23/20 15:40 08/23/20 Urine Barbiturates Screen Negative (Negative) 08/23/20 15:40 08/23/20 Urine Cocaine Screen Negative (Negative) 08/23/20 15:40 08/23/20 Urine Methadone Screen Negative (Negative) 08/23/20 15:40 08/23/20 Urine Opiates Screen Negative (Negative) 08/23/20 15:40 08/23/20 Ur Tricyclic Antidepressants Screen Negative (Negative) 08/23/20 15:40 08/23/20 Ur Tetrahydrocannabinol (THC) Scrn Negative (Negative) 08/23/20 15:40 08/23/20 Panel: Urine HCG, Qualitative Positive 07/14/20 13:11 07/14/20 Anesthesia Assessment and Plan Anesthesia History Personal History: No History of Anesthesia Complications Family History: No Family History of Anesthesia Complications Exercise Tolerance Exercise Tolerance: Metabolic Equivalents>4 Pertinent Negatives Pertinent Negatives: No Symptoms of GERD Cardiac & Pulmonary Exam Cardiac Exam: Normal S1/S2 Heart Sounds Pulmonary Exam: Clear Bilateral Breath Sounds Airway Exam Known Difficult Airway: No Mallampati Class: 2 Mouth Opening: Normal (> 3cm) Thyromental Distance: Greater than 3 cm Neck Range of Motion: Full ROM Neck Circumference: Normal Teeth Condition: Normal Dentition ASA Classification ASA Score: ASA 2 Emergency Case?: No NPO Status NPO Status: NPO Clears >2 hours, Solids >8 hours Status Status: Per Patient Anesthesia Plan Anesthesia Technique: Spinal Anesthesia Airway Planned: Natural Airway Monitors Used: Standard Monitors
[2021-03-25] MEDS: Normal Saline Flush 10 ML SYR (00:52)
[2021-03-25] MEDS: Lactated Ringers 1,000 ML 125 ML IV (00:53)
[2021-03-25] MEDS: fentaNYL 100 MCG/2 ML VIAL 25 MCG IT (01:20)
[2021-03-25] MEDS: Ondansetron 4 MG/2 ML VIAL IVP (01:20)
[2021-03-25] MEDS: Normal Saline 250 ML (01:30)
[2021-03-25] MEDS: Azithromycin 500 MG VIAL (01:33)
--- NOTE | 2021-03-25 01:36 | PLAC_PTH ---
PATIENT: Katarina Sánchez LOC: OBS U#:[id number] AGE/SX: 30/F ROOM: OBS.307 RE03/24/[address]: Valeria Wood : 1990 BED: A DIS: 03/26/2021 SPEC #: [id number] RECD: 03/25/21 12:47 STATUS: YOLY REQ #: [id number] ONDINA: 03/25/21 01:[address]: Valeria Wood DEPT: Surgical Specimen RECD BY: Susan Saunders ENTERED: 03/25/21 12:48 SP TYPE: PLAC OTHR DR: Estela Gerber Tissues: 1 - PLACENTA (3RD TRIMESTER) Procedures: GROSS AND MICRO LEVEL 5 Comments: [id number]
[2021-03-25] MEDS: Oxytocin/Normal Saline 30 UNITS/500 ML BAG 167 UNITS IV (01:40)
[2021-03-25] MEDS: Ketorolac 30 MG/ML VIAL IVP ×4 (02:00→19:34)
--- NOTE | 2021-03-25 02:56 | PDOC.OPNB_ITS ---
Date of service: 03/25/21 Time of Service: 02:56 Operative Note Operative Note Delivery Method: Unscheduled Category: Urgent DATE OF PROCEDURE: 03/25/21 PRE-OP DIAGNOSES: Prolonged rupture of membranes: Face presentation, mentum transverse POST-OP DIAGNOSES: same PROCEDURE: Primary low transverse section SURGEON: Roseanne Hernandez Anesthesia: spinal Estimated blood loss (mL): 400 Pathology: other (Placenta) Complications: None Patient was transported to: floor Patient's condition: stable Indications: Patient is a 30-year-old 2 para 1 who presented to etc. with spontaneous rupture of membranes. After approximately 24 hours of rupture of membranes, she began to have active labor. At 6 cm she was noted to have a face presentation with the mentum in the right transverse position. In light of this fact and the difficulty in continued need for extension the vertex decision was made for primary section. Risk benefits and alternatives have been discussed with the patient and family and full informed consent was obtained. Findings: Delivery of a viable female from the mentum transverse, face presentation Procedure Description: Patient was taken the operating suite with IV running where she is placed in the seated position. Spinal anesthesia was administered tested and found to be adequate. She is then placed in dorsal supine position after vaginal preparation had been performed. She had compression stockings and Cagle catheter previously placed and inserted. She was then prepped and draped in the usual sterile fashion. Pfannenstiel skin incision was made carried down to the underlying fascia which was nicked in the midline and fascial incision extended laterally. The fascia was then split from the rectus muscles rectus muscles identified and split in the midline. Peritoneum identified tented up and entered sharply and the peritoneal incision extended superiorly and inferiorly. At this point the bladder blade was inserted and the vesicouterine peritoneum identified, tented up and entered sharply. The bladder flap was created with meticulous dissection away from the lower uterine segment and the bladder blade reinserted. A low transverse uterine incision was made with a scalpel and extended bluntly laterally. The vertex was noted. vertex was in a significantly extended position and deflexed prior to delivery. Shoulders followed with ease. Three-vessel cord was noted clamped x2 and cut and the was handed off to the waiting pediatric team. At this point segment of cord for cord gases were obtained pending Apgars and cord blood also obtained. Placenta was manually expressed from the uterus and sent for pathologic examination due to malpresentation and history of marginal cord insertion. The uterus was then exteriorized and cleared of all clot and debris. Uterine incision was closed in a 2 layer closure using 0 Monocryl suture with the first layer being running locked, second layer being imbricating. The alejandro rine incision was found to be hemostatic. Ovaries and tubes inspected and found to be normal there is a small paratubal cyst on the right fallopian tube. Uterus tubes and ovaries were replaced into the abdomen and abdomen irrigated with copious amounts of normal saline. At this point the fascial incision was closed using 0 Vicryl suture in a running fashion subcutaneous tissue irrigated with copious amounts of normal saline and the skin edge was then reapproximated with a subcuticular stitch. Steri-Strips and sterile dressing were placed. Patient was then returned to a labor bed and returned to the floor with Cagle catheter in place draining clear yellow urine. Findings: Normal-appearing tubes ovaries and uterus. Delivery of viable female infant from a face presentation with mentum transverse. EBL: 400 mL Complications: None apparent Pathology: Placenta for examination.
[2021-03-25] MEDS: Oxytocin/Normal Saline 30 UNIT/500 ML BAG 95 UNITS IV (04:44)
--- NOTE | 2021-03-25 07:04 | W.PM.OBNL1 ---
Date of service: 03/25/21 Time of Service: 00:10 Pelvic Exam Dilation: 6 station: -1 Cervix Position: posterior Consistency: soft Vaginal Exam Presentation: Face Contractions Monitor Mode: External Contraction Frequency(min): every 3 minutes Intensity: Moderate/Strong Fetus A Monitor: External (US) Heart Rate Baseline: 130 Presentation: Face Variability: Moderate (6-25 BPM) Categories: Category I FHR Rhythm: Regular Accelerations: 15 X 15 Decelerations: None Assessment and Plan Assessment and plan (1) Face presentation of fetus: Status: Acute Assessment and plan: Dr. hernandez assessed the baby's position and she was prepared for urgent section Objective Abnormal lab results 03/24/21 Range/Units 09:12 WBC 19.52 H (4.4-10.8) 10^3/uL MPV 13.1 H (8.0-11.0) fL Temp Pulse Resp BP Pulse Ox 98.8 F 78 18 97/54 L 98 03/25/21 03:15 03/25/21 06:17 03/25/21 06:17 03/25/21 06:17 03/25/21 06:17 Laboratory Results WBC 19.52 10^3/uL (4.4-10.8) H 03/24/21 09:12 RBC 4.45 10^6/uL (3.93-5.22) 03/24/21 09:12 Hgb 13.1 g/dL (11.2-15.7) 03/24/21 09:12 Hct 39.9 % (36.0-46.0) 03/24/21 09:12 MCV 89.7 fL (80-95) 03/24/21 09:12 MCH 29.4 pg (27.0-33.0) 03/24/21 09:12 MCHC 32.8 % (32.0-36.0) 03/24/21 09:12 RDW 13.5 % (11.7-14.6) 03/24/21 09:12 Plt Count 169 10^3/uL (130-400) 03/24/21 09:12 MPV 13.1 fL (8.0-11.0) H 03/24/21 09:12 COVID-19 Source Nasal/nares 03/24/21 07:55 SARS-CoV-2 (PCR) Negative (Negative) 03/24/21 07:55 Patient ABO/Rh A Positive 03/24/21 09:12 Antibody Screen Negative 03/24/21 09:12 Subjective Patient Reports: No new Complaints Interval history since last seen: Katarina has strong pelvic pressure. SVE revealed baby in face presentation. Dr Hernandez was notified and OR team was paged to prepare for section. This was explained to Katarina and her and they verbalize understanding. Results Hemoglobin/Hematocrit: Hgb 13.1 g/dL (11.2-15.7) 03/24/21 09:12 Hct 39.9 % (36.0-46.0) 03/24/21 09:12 Abnormal Lab Findings: Abnormal Labs 03/24/21 09:12 WBC 19.52 H MPV 13.1 H
--- NOTE | 2021-03-25 14:34 | W.ANESPOSTOP ---
Postoperative Evaluation Date, Time and Location Date Performed: 03/25/21 Time Performed: 14:35 Patient Location: Obstetrics Vital Signs Most Recent Imported Vital Signs: Most Recent Vital Signs Temp Pulse Resp BP Pulse Ox 37.0 C 75 16 97/56 L 96 03/25/21 08:00 03/25/21 08:00 03/25/21 08:00 03/25/21 08:00 03/25/21 08:00 Pain Score Most Recent Pain Score: Most Recent Pain Score Pain Level [Abdomen] 0 03/25/21 08:00 Pain Level 0 03/25/21 08:38 Assessment Mental Status: Awake (Alert & Oriented to Patient Baseline) Airway and Respiratory Function: Patent airway with normal (patient baseline) respiratory exam Cardiovascular Function: Hemodynamically Stable Hydration Status: Adequately Hydrated Nausea & Vomiting: No Nausea or Vomiting Pain: Pt. Denies Any Pain Peripheral Nerve Block: Patient did not receive a nerve block
[2021-03-25] MEDS: Docusate Sodium 100 MG CAP PO (19:34)
[2021-03-25] MEDS: Normal Saline Flush 10 ML SYR IVP (19:35)
[2021-03-26] MEDS: Ketorolac 30 MG/ML VIAL IVP (02:00)
[2021-03-26 05:03] VITALS: BP 81/44; PULSE 72; RESP 16; TEMP 36.7; O2SAT 98
[2021-03-26 06:40] LABS: Abs Immature Grans 0.08 10^3/uL (0.0-0.06); Absolute Basophil Count 0.04 10^3/uL (0.0-0.2); Absolute Lymphocyte Count 2.69 10^3/uL (1.2-3.4); Absolute Monocyte Count 0.82 10^3/uL (0.1-0.8); Absolute Neutrophil Count 9.64 10^3/uL (1.2-6.7); Basophils % 0.3; Eosinophils % 1.3; HCT 29.3 % (36.0-46.0); HGB 9.6 g/dL (11.2-15.7); Immature Grans % 0.6; MCH 29.9 pg (27.0-33.0); MCHC 32.8 % (32.0-36.0); MCV 91.3 fL (80-95); MPV 12.6 fL (8.0-11.0); Monocytes % 6.1; Neutrophils % 71.7; Nucleated RBC 0 %; Platelet Count 132 10^3/uL (130-400); RBC 3.21 10^6/uL (3.93-5.22); RDW 13.9 % (11.7-14.6); RDW-SD 46.4 fL; WBC 13.45 10^3/uL (4.4-10.8)
[2021-03-26 06:41] LABS: Absolute Eosinophil Count 0.17 10^3/uL (0.0-0.7)
--- NOTE | 2021-03-26 08:30 | OBPPV_ITS ---
Date of service: 03/26/21 Time of Service: 08:30 Assessment and Plan Assessment and plan (1) Status post primary low transverse section: Status: Acute Assessment and plan: Patient is postoperative day #1 status post primary low transverse section for face presentation after prolonged rupture of membranes. She had spontaneous rupture of membranes and a prolonged labor. She progressed to point that she was 6 cm dilated and found to be in the face disease with mentum transverse. In light of this fact this decision was made for section. Risk benefits and alternatives of procedure were explained to the patient in full informed consent had been obtained. She had an uncomplicated section and is doing well postoperative day #1. She does have a slight drop in her hemoglobin, however is asymptomatic. She has no signs of ongoing blood loss. She would like to potentially be discharged home later today. We will continue to monitor throughout the day. If she is stable, with good pain control, she may be discharged this evening. (2) Face presentation of fetus: Status: Acute (3) Prolonged rupture of membranes: Status: Acute Subjective Subjective Interval history: Patient seen and examined this morning. Doing well. Drop in hemoglobin over the night. Completely asymptomatic. Tolerating regular diet. No flatus at this point. Would anticipate discharge home this evening if she is feeling okay. Patient desires discharge. Patient comments: No complaints, Pain well controlled, Incisional pain and Tolerating diet Patient's Mood: Good [place] baby status: Doing well, Nursing well, Rooming in and Strong Bonding Observed feeding status: Exclusively breast feeding Exam Physical Exam Vital signs: Temp Pulse Resp BP Pulse Ox 98.1 F 72 16 81/44 L 98 03/26/21 05:03 03/26/21 05:03 03/26/21 05:03 03/26/21 05:03 03/26/21 05:03 Constitutional Constitutional: no acute distress and morbidly obese HEENT Exam HEENT Exam: Normal Neck Exam Neck Exam: Normal Respiratory Exam Respiratory Exam: Normal Cardiovascular Exam Cardiovascular Exam: Normal Abdominal Exam Abdomen: Tender Comments: Incision clean, dry, intact, no erythema or ecchymosis noted Fundal Exam Fundus: Below Umbilicus and Firm Extremities Exam Extremity Exam: Calf Tenderness and Edema (1+) Neurological Exam Neurological Exam: Normal Psychiatric Exam Psychiatric Exam: Normal Results Hemoglobin/Hematocrit: Hgb 9.6 g/dL (11.2-15.7) L D 03/26/21 06:15 Hct 29.3 % (36.0-46.0) L D 03/26/21 06:15 Abnormal Lab Findings: Abnormal Labs 03/24/21 03/26/21 09:12 06:15 WBC 19.52 H 13.45 H RBC 3.21 L Hgb 9.6 L D Hct 29.3 L D MPV 13.1 H 12.6 H Absolute Neutrophils 9.64 H Absolute Monocytes 0.82 H
--- NOTE | 2021-03-26 08:39 | DSE_ITS ---
Date of service: 03/26/21 Time of Service: 08:39 DS: Diagnosis Discharge Diagnosis (1) Status post primary low transverse section: Status: Acute (2) Face presentation of fetus: Status: Acute (3) Prolonged rupture of membranes: Status: Acute Discharge Plan Disposition Patient Disposition: HOME Condition: Good Discharge Details Reason For Visit: Spontaneous Rupture of Membranes Admit Date/Time: 03/24/21 07:25 Admit Provider: Valeria Wood Attending Provider: Valeria Wood Primary Care Provider: Estela Gerber [facility] Hospital Course: Patient is a 30-year-old 2 para 1 who had care via women's wellness through the midwives. She had spontaneous rupture of membranes at term when she presented not in labor. She had cervical ripening and a prolonged rupture of membranes approximately 24 hours. She received misoprostol for cervical ripening and subsequently had active labor. When she was 6 cm dilated, she was noted to be in the face presentation and consultation was undertaken. On my examination vertex was a face presentation with mentum transverse and had significantly extended. In light of the fact the decision was made for primary section. She underwent uncomplicated primary section for delivery of a viable female weighing 9 pounds 1 ounce. She had an uncomplicated post operative course. She was discharged home postoperative day #1 late in the evening, ambulating, tolerating regular diet and oral pain medication with stable vital signs. Home Meds and New Rx's Prescriptions: New ibuprofen 800 mg tablet 800 mg PO Q8H PRNQty: 30 RF: 2 docusate sodium [Colace] 100 mg capsule 100 mg PO BID Qty: 30 RF: 0 oxycodone-acetaminophen 5-325 mg tablet 1 tab PO Q8H PRNQty: 10 RF: 0 Continued prenat.vits,amalia,fto-tilw-mrhzk tablet 2 tab PO DAILY RF: 0 ferrous sulfate 325 mg (65 mg iron) tablet 325 mg PO DAILY Qty: 60 RF: 5 albuterol sulfate [Proventil HFA] 6.7 GM HFA aerosol inhaler 2 puff Inhalation Q4H PRN Qty: 1 RF: 1 montelukast [Singulair] 10 mg tablet 10 mg PO HS PRNQty: 90 RF: 3 Discharge Instructions Stand Alone Forms: BC Discharge Instruc Activity:: Pelvic rest, no lifting > Equipment/Supplies:: No Equipment Needed Diet:: As Tolerated Discharge Orders Discharge Orders: Discharge Order (Routine); Ordered 03/26/21 Ordered By: Roseanne Hernandez OB:DS Summary Summary Episiotomy Description: None Laceration Extension: N/A Contraception Discussed Contraception Discussed: Yes, Infant Gender-Baby A: Female weight: 9 lb 3.622 oz Status at Discharge Functional status at discharge: independent ambulation Overall status at discharge: patient is progressing back to baseline Mental Status: mental status grossly normal Speech and Movement: speech and movement normal Mood: congruent mood Affect: normal affect Exam Physical Exam Vital signs: Temp Pulse Resp BP Pulse Ox 98.1 F 72 16 81/44 L 98 03/26/21 05:03 03/26/21 05:03 03/26/21 05:03 03/26/21 05:03 03/26/21 05:03 Constitutional Comments: See physical examination from progress note dated 03/26/2021 [facility] Medical History (Updated 03/25/21 @ 00:44 by Roseanne Hernandez DO) Asthma Asthma (07/18/12) MILD to mod persistent Dyspepsia Face presentation of fetus Fibrocystic breast changes Fibrocystic disease of breast Seen Dr Mega Brice Gingivitis Headache (08/19/14) after concussion History of concussion Hyperlipidemia Inguinal lymphadenopathy Obesity Ruptured membranes, prolonged Surgical History (Updated 03/26/21 @ 08:32 by Roseanne Hernandez DO) Status post primary low transverse section Tonsillectomy 03/2013 Family History Maternal Grandfather Colon cancer Paternal Grandfather Prostate cancer Maternal Grandmother Cervical cancer Bladder cancer Paternal Grandmother Lung cancer Father Thyroid disease Social History Smoking/Tobacco Use Status: Never Smoking risk assessment performed?: Yes Alcohol Intake: former (prior to knowledge of ) Details: ONE DRINK A WEEK Drug use: Never Substance use type: does not use Household members: spouse Number of Children: 0 What type of physical activity do you participate in: walking Duration: 30-45 minutes/day Frequency: daily Seatbelt use: always Do you feel safe in your relationship?: Yes Female Reproductive History Menstrual control method: none History History 2 Para 1 Hx # Term Pregnancies 1 Multiple births 0 Hx # Pregnancies 0 Ectopic pregnancies 0 AB induced 0 Hx Number of Living Children 1 AB spontaneous 0 Past Pregnancies Del. Date GA/Weeks # Outcome Route Wgt Sex Labor Lgth Anesthes ia Location Prov Complic 06/18/19 40 No Successful vaginal 8 lb 10 oz Male 10.5 K. KATYA Wood Delivery Date: 06/18/19 Nitrous for pain relief, shallow 2nd degree laceration, sutured. Rosenbaum. GBS pos. Valeria Wood DS: Data Vitals/I&O Vitals and I&O: Vital Signs Temperature 98.1 F 03/26/21 05:03 Pulse 72 03/26/21 05:03 Pulse Rhythm Regular 03/25/21 19:53 Respiratory Rate 16 03/26/21 05:03 Blood Pressure 81/44 L 03/26/21 05:03 Blood Pressure Mean 56 03/26/21 05:03 Pulse Oximetry 98 03/26/21 05:03 Oxygen Delivery Method Room Air 03/24/21 08:29 Oxygen Flow Rate 0 03/24/21 08:29 Pain Level 1 03/26/21 02:00 Comment 03/26/21 05:03 Intake & Output 03/25/21 03/25/21 03/26/21 11:59 23:59 11:59 Intake Total 2000 / 3370 1370 / 3370 500 / 500 Output Total 750 / 1675 925 / 1675 1200 / 1200 Balance 1250 / 1695 445 / 1695 -700 / -700 Weight 233 lb Intake: IV 2000 / 2000 500 / 500 Oral 370 / 370 Other 1000 / 1000 Output: Urine 150 / 1075 925 / 1075 1200 / 1200 Emesis 200 / 200 Estimated Blood Loss 400 / 400 Other: Urine Color Yellow Urine Appearance Clear Emesis Description Undigested Food Data Completed and Pending Labs on day of discharge: Labs from last 24 hours 03/26/21 06:15 WBC 13.45 H RBC 3.21 L Hgb 9.6 L D Hct 29.3 L D MCV 91.3 MCH 29.9 MCHC 32.8 RDW 13.9 Plt Count 132 MPV 12.6 H Immature Gran % 0.6 Neutrophils % 71.7 Lymphocytes % 20.0 Monocytes % 6.1 Eosinophils % 1.3 Basophils % 0.3 Nucleated RBC % 0 Absolute Neutrophils 9.64 H Absolute Lymphocytes 2.69 Absolute Monocytes 0.82 H Absolute Eosinophils 0.17 Absolute Basophils 0.04
[2021-03-26 09:30] VITALS: BP 105/64; PULSE 90; RESP 16; TEMP 36.5; O2SAT 96
[2021-03-26] MEDS: Ibuprofen 600 MG TAB PO (12:39)
[2021-03-26 12:46] VITALS: BP 105/70; PULSE 85
== END 2021-03-26 17:40 | disposition home or self-care (01) | DRG 788 ==
PROVIDERS: Obstetrics & Gynecology; Admitting Provider Advanced Practice Midwife; PCP Nurse Practitioner Family; Visit Provider Advanced Practice Midwife
PROC: (CPT 59514; principal; 2021-03-25 01:00)
DX: O42.02 Full-term premature rupture of membranes, onset of labor within 24 hours of rupture (principal); Z37.0 Single live birth; O32.3XX0 Maternal care for face, brow and chin presentation, not applicable or unspecified; O99.52 Diseases of the respiratory system complicating childbirth; Z20.822 Contact with and (suspected) exposure to COVID-19; O69.89X0 Labor and delivery complicated by other cord complications, not applicable or unspecified; O99.214 Obesity complicating childbirth; E66.9 Obesity, unspecified; Z3A.40 40 weeks gestation of pregnancy; J45.40 Moderate persistent asthma, uncomplicated; N60.19 Diffuse cystic mastopathy of unspecified breast; E78.5 Hyperlipidemia, unspecified; O75.89 Other specified complications of labor and delivery
CPT/HCPCS: 59514; 36415; 85027; 86850; 86900; 86901; 87635; 85025; 88307; J0131; J0456; J0690; J1885; J2405; J2704; J3010; J3490

== ENCOUNTER 2021-07-01 17:18 | Outpatient (REF) | payer OTHER, SELFPAY | END 2021-07-01 17:19 | disposition home or self-care (01) | LOC: LBN 17:18 | PROVIDERS: PCP Nurse Practitioner Family; Visit Provider Nurse Practitioner Family | DX: R39.15 Urgency of urination (principal) | CPT/HCPCS: 87077; 87086; 87186 ==

== ENCOUNTER 2023-04-13 01:44 | Outpatient (CLI) | payer BC, SELFPAY ==
[2023-04-13 15:02] LABS: Panorama Kit Sent via Fed Ex
[2023-04-13 15:19] LABS: Abs Immature Grans 0.02 10^3/uL (0.0-0.06); Absolute Lymphocyte Count 2.74 10^3/uL (1.2-3.4); Absolute Monocyte Count 0.42 10^3/uL (0.1-0.8); Basophils % 0.3; Eosinophils % 0.3; HCT 41.2 % (36.0-46.0); Immature Grans % 0.2; Lymphocytes % 23.7; MCH 29.4 pg (27.0-33.0); MCV 86 fL (80-95); MPV 11.2 fL (8.0-11.0); Monocytes % 3.6; Neutrophils % 71.9; Platelet Count 265 10^3/uL (130-400); RBC 4.77 10^6/uL (3.93-5.22); RDW 12.4 % (11.7-14.6); RDW-SD 39.5 fL; WBC 11.58 10^3/uL (4.4-10.8)
[2023-04-13 15:22] LABS: Absolute Basophil Count 0.03 10^3/uL (0.0-0.2); Absolute Eosinophil Count 0.03 10^3/uL (0.0-0.7); Absolute Neutrophil Count 8.33 10^3/uL (1.2-6.7)
[2023-04-13 17:05] LABS: TSH 1.15 uIU/mL (0.36-3.74)
[2023-04-16 09:18] LABS: Hepatitis B Surface Ag Negative (Negative)
[2023-04-16 09:54] LABS: HIV-1/2 Ag & Ab Screen Negative (Negative)
[2023-04-16 10:09] LABS: Hepatitis C Ab w Rflx HCV PCR Negative (Negative)
[2023-04-16 10:13] LABS: Rubella IgG Ab (UVM) Positive (See Note); Varicella IgG Antibody Positive (See Note)
[2023-04-18 15:49] LABS: Syphilis IgG w/Reflex Nonreactive (Nonreactive)
== END 2023-04-13 01:45 | disposition home or self-care (01) ==
LOC: LBO 01:44
PROVIDERS: Advanced Practice Midwife; PCP Nurse Practitioner Family; Visit Provider Advanced Practice Midwife
DX: Z34.91 Encounter for supervision of normal pregnancy, unspecified, first trimester (principal); Z83.49 Family history of other endocrine, nutritional and metabolic diseases
CPT/HCPCS: 36415; 81511; 86787; 86803; 86850; 86900; 86901; 87340; 87389; 84443; 85025; 86762; 86780

== ENCOUNTER 2023-04-13 14:08 | Outpatient (REF) | payer BC, SELFPAY ==
--- NOTE | 2023-04-13 14:00 | PAPFT_PTH ---
PATIENT: Katarina Sánchez LOC: [facility] U#:[id number] AGE/SX: 32/F ROOM: RE04/13/[address]: Delphine Chacon CNM : 1990 BED: DIS: 04/13/2023 SPEC #: [id number] RECD: 04/17/23 17:09 STATUS: YOLY TATE #: [id number] ONDINA: 04/13/23 14:[address]: Delphine Chacon DEPT: [facility] Cytology RECD BY: Susan Saunders ENTERED: 04/17/23 17:10 SP TYPE: PAPFT OTHR DR: Estela Gerber Tissues: 1 - CX/ENDOCX FOR PAP SMEARS Procedures: PAP THIN PREP/UVM Screening HPV DNA PROBE Comments: [id number] (CHLAMYDIA/GC)
[2023-04-13 17:02] LABS: *AMPHETAMINES SCREEN URINE Negative (Negative); *BARBITURATES SCREEN URINE Negative (Negative); *BENZODIAZEPINES SCREEN URINE Negative (Negative); Cannabinoids THC Negative (Negative); Cocaine Screen,Urine Negative (Negative); METHADONE URINE SCREEN Negative (Negative); OPIATES URINE SCREEN Negative (Negative)
[2023-04-13 17:05] LABS: Tricyclic Antidepressants Negative (Negative)
[2023-04-18 14:36] LABS: Chlamydia Result Negative (Negative); GC Result Negative (Negative)
[2023-04-20 11:07] LABS: Buprenorphine Negative ng/mL (Cutoff: 5.0); Norbuprenorphine Negative ng/mL (Cutoff: 2.5)
== END 2023-04-13 14:09 | disposition home or self-care (01) ==
LOC: LBN 14:08
PROVIDERS: Advanced Practice Midwife; PCP Nurse Practitioner Family; Visit Provider Advanced Practice Midwife
DX: Z34.91 Encounter for supervision of normal pregnancy, unspecified, first trimester (principal)
CPT/HCPCS: 80307; 80348; 87491; 87591; 88142; 87086; 87624

== ENCOUNTER 2023-05-07 04:18 | Outpatient (CLI) | payer BC, SELFPAY ==
[2023-05-07 10:55] LABS: Glucose,1 Hr (Glucola) 105 mg/dL (80-140)
== END 2023-05-07 04:19 | disposition home or self-care (01) ==
LOC: LBO 04:18
PROVIDERS: Advanced Practice Midwife; PCP Nurse Practitioner Family; Visit Provider Advanced Practice Midwife
DX: Z34.92 Encounter for supervision of normal pregnancy, unspecified, second trimester (principal); Z3A.15 15 weeks gestation of pregnancy
CPT/HCPCS: 36415; 82950

== ENCOUNTER 2023-08-10 02:33 | Outpatient (CLI) | payer BC, SELFPAY ==
[2023-08-10 08:04] LABS: HCT 34.6 % (36.0-46.0); HGB 11.6 g/dL (11.2-15.7); MCH 29.5 pg (27.0-33.0); MCHC 33.5 % (32.0-36.0); MCV 88 fL (80-95); MPV 10.9 fL (8.0-11.0); Platelet Count 218 10^3/uL (130-400); RBC 3.93 10^6/uL (3.93-5.22); RDW 12.9 % (11.7-14.6); RDW-SD 41.4 fL; WBC 15.28 10^3/uL (4.4-10.8)
[2023-08-10 08:30] LABS: Glucose,1 Hr (Glucola) 97 mg/dL (80-140)
== END 2023-08-10 02:34 | disposition home or self-care (01) ==
LOC: LBO 02:33
PROVIDERS: PCP Nurse Practitioner Family; Visit Provider Advanced Practice Midwife
DX: Z34.93 Encounter for supervision of normal pregnancy, unspecified, third trimester (principal); Z3A.28 28 weeks gestation of pregnancy
CPT/HCPCS: 36415; 82950; 85027

== ENCOUNTER → 2023-10-05 01:11 | Outpatient (CLI) | payer BC, SELFPAY ==
--- NOTE | 2023-10-05 07:15 | DI.US_ITS ---
Exam(s) US OB RAISSA WEIGHT EXAM: US OB RAISSA WEIGHT CLINICAL HISTORY: RAISSA increased,O40.9xx0. TECHNIQUE: Transabdominal obstetrical ultrasound performed. COMPARISON: US US OB RAISSA WEIGHT from 01/25/2021 FINDINGS: Number of fetuses: 1 position: CEPHALIC Placental location: There is a grade 1 posterior and fundal placenta. No evidence of previa. BIOMETRIC DATA: BPD: 9.24cm, 37weeks 4days HC: 34.07cm, 39weeks 2days AC: 35.6cm, 39weeks 4days FL: 7.22cm, 37weeks EFW: 3,563.53g, 7lb 14.37oz, 93.1% Composite Age: 38weeks 3days LORAINE: 10/16/2023 Heart Rate: 150 Amniotic fluid index: 18.13cm. Visually, amount of fluid is within normal limits. IMPRESSION: 1. Single live intrauterine gestation as above. 2. Estimated weight is 3564gms. This is the 93rd percentile. 3. Amniotic fluid index is 18.1 cm. Visually within normal limits. DATA REPOSITORY:
== END ==
PROVIDERS: PCP Nurse Practitioner Family; Visit Provider Advanced Practice Midwife
DX: Z34.93 Encounter for supervision of normal pregnancy, unspecified, third trimester
CPT/HCPCS: 76816

== ENCOUNTER 2023-10-05 09:02 | Outpatient (REF) | payer BC, SELFPAY | END 2023-10-05 09:03 | disposition home or self-care (01) | LOC: LBN 09:02 | PROVIDERS: PCP Nurse Practitioner Family; Visit Provider Advanced Practice Midwife | DX: Z34.93 Encounter for supervision of normal pregnancy, unspecified, third trimester (principal); Z36.85 Encounter for antenatal screening for Streptococcus B; Z3A.36 36 weeks gestation of pregnancy | CPT/HCPCS: 87081 ==

== ENCOUNTER 2023-10-28 22:27 | Inpatient (IN) | payer BC, SELFPAY ==
[2023-10-28 22:52] VITALS: BP 111/69; PULSE 89; TEMP 36.6; O2SAT 18
--- NOTE | 2023-10-28 22:55 | W.PM.OBHPL1 ---
Date of service: 10/28/23 Time of Service: 22:55 Assessment and Plan Assessment and plan (1) Full-term PROM with onset of labor within 24 hours of rupture: Status: Acute Assessment and plan: 1. Admit, IV access, CBC and type and screen 2. Support labor, patient verbalizes desire to continue with TOLAC 3. Dr. Hernandez aware of patient admission, she will review with [facility] about timing of OR staff being in hospital related to TOLAC patient. 4. Expect NVD. (2) Group B Streptococcus carrier, +RV culture, currently : Status: Acute Assessment and plan: 1. PCN ordered for PCN prophylaxis. 2. Temp every 2 hours unless otherwise indicated 3. will limit vaginal examinations. OB-HPI Labor/Delivery History of Present Illness Reason for Visit: Labor Chief Complaint: Uterine Contractions; Suspected Rupture of Membranes , Associated Signs and Symptoms of Suspected ROM: clear fluid leaking vaginally, ROM + pending. ARMIDA. LORAINE Calculator Estimated Delivery Date Method Current WG Current Estimate 10/27/23 Ultrasound #1 40w 1d Other Estimates 10/16/23 LMP (Uncertain) 41w 5d Comments: Katarina and her present for labor. She reports large gush of fluid at 1930 and contractions beginning approximately 1999. Denies vaginal bleeding. Reports baby has been active. Reports clear fluid. She is hoping for TOLAC. She is aware of need for IV placement and treatment of GBS status which is why she presented earlier in labor. Denies questions. ARMIDA History of Present Expected Delivery Route/Plan TOLAC/ - CNM FOB/ - Gabino Sánchez (3rd child together) BG / GBS positive Desires post[place] [facility] [place] Issues/Plan 1. Desires , plan informed consent appt w/MD @ 30 wks scheduled. Prefers trial of labor if spontaneous labor prior to 41 weeks. Scheduled at 41 weeks rather than labor induction at a tertiary care facility 1a. 09/19 [place] [facility] [place] >41 wks, declines rC/S on 10/31. 1b. Appointment at [facility] 10/16/23 11c. 11/04-IOL planned at [facility] 2. BMI 35 and previous macrosomia, early glucola 105, 97 at 28 weeks. 3. 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 Level 2 anatomy scan 20 wks @ [facility]: nml findings 3c. Interval growth @ 32 wks 09/03 at [facility]83rd percentile with mild polyhydramnios 23.4 - repeat fluid check @ [facility] at 36 weeks / - 18.13 4. Email with info [id number] sent to Peds for FYI 07/04/23, confirmation from Dr. Julio that baby is able to be here at [facility] as long as no other indications otherwise 09/04 5. Tdap given Assessment: History Reviewed & Current Informed Consent Informed Consent: Vaginal after (Katarina is aware of risks and benefits as well as alternatives to /TOLAC and desires trial of labor) Review of Systems All systems reviewed & are unremarkable except as noted in HPI and below Constitutional Constitutional: Reports as per HPI Genitourinary Comments: Large gush of amniotic fluid at 1930 and continues to leak fluid since that time. Musculoskeletal Comments: reports uterine contractions every 8-10 minutes becoming more uncomfortable. PFSH All Active Problems (Updated 10/28/23 @ 23:09 by Valeria Sosa CNM) Full-term PROM with onset of labor within 24 hours of rupture (Acute) Group B Streptococcus carrier, +RV culture, currently (Acute) Amniotic fluid index increased (Acute) Abnormal chromosomal and genetic finding on screening mother (Acute) [place] [facility] [place]16[place]23 (Acute) History of delivery affecting (Acute) De Quervain's tenosynovitis, right (Acute) Depo-Medrol injection: 07/18/2021 De Quervain's tenosynovitis, left (Acute) Depo-Medrol injection: 06/06/2021 Obesity (Chronic) History of concussion (Chronic) Asthma (Acute 07/18/12) MILD to mod persistent Medical History Family history of thyroid disease in father Enlarged lymph node in neck membranes, rupture Right groin mass Gingivitis Hyperlipidemia Dyspepsia Inguinal lymphadenopathy Fibrocystic breast changes Headache (08/19/14) after concussion Abdominal pain (05/21/13) Likely IBS - visceral hypersensitivity. Full eval with [facility] [place] 2012 Asthma Fibrocystic disease of breast Seen Dr Mega Brice Surgical History Status post primary low transverse section Tonsillectomy 03/2013 Family History Maternal Grandfather Colon cancer Paternal Grandfather Prostate cancer Maternal Grandmother Cervical cancer Bladder cancer Paternal Grandmother Lung cancer Father Thyroid disease Social History Smoking/Tobacco Use Status: Never Smoking risk assessment performed?: Yes Alcohol Intake: former Details: ONE DRINK A WEEK Drug use: Never Substance use type: does not use Household members: spouse Number of Children: 0 What type of physical activity do you participate in: walking Duration: 30-45 minutes/day Frequency: daily Seatbelt use: always Do you feel safe in your relationship?: Yes Female Reproductive History Menstrual control method: none History History 3 Para 2 Hx # Term Pregnancies 2 Multiple births 0 Hx # Pregnancies 0 Ectopic pregnancies 0 AB induced 0 Hx Number of Living Children 2 AB spontaneous 0 Past Pregnancies Del. Date GA/Weeks # Preg Succ Route Wgt Sex Labor Lgth Anesthesia Location Prov Complic 06/18/19 40 No Yes vaginal 8 lb 10 oz Male 10.5 Jimbo Wood CNM 03/25/21 40 No Yes 9 lb 3.6 oz Female 25 hrs long Jimbo Wood CNM, Dr. Hernandez for C/S, no complications Delivery Date: 06/18/19 Last Updated by: Delphine Chacon Nitrous, 2nd degree lac, short cord, Rosenbaum Delivery Date: 03/25/21 Last Updated by: Delphine Chacon persistent OP, pit jun, C/S @ 6 cm arrest of dilation Tee Meds Allergies and Home Medications Allergies Allergy/AdvReac Type Severity Reaction Status Date / Time nickel Allergy Intermediate RASH Verified 10/28/23 23:06 Home Medications Medication Instructions Recorded Confirmed Type albuterol sulfate 90 mcg/actuation 2 puff inhalation Q4H PRN ##1 01/06/15 10/15/23 History aerosol inhaler (Proventil HFA) montelukast 10 mg tablet 10 mg PO HS PRN #90 tabs 07/28/19 10/15/23 History (Singulair) prenat.vits,amalia,eip-lbit-edbcn 1 tab PO DAILY 02/22/23 10/15/23 History Exam Physical Exam Vital signs: BP Narrative: BP 111/69 Hr 89 T aftebrile Constitutional Constitutional: no acute distress and obese Detailed Labor and Delivery Exam Dilation: 1.5 Effacement (%): 60 station: -2 Position: LOP Cervix position: posterior Consistency: soft Mcintyre Score: Cervical Points Exam 0 1 2 3 Dilation Closed 1-2cm 3-4 cm 5-6cm Effacement 0-30% 40-50% 60-70% 80% Consistency Firm Medium Soft Station -3 -2 -1,0 +1,+2 Position Posterior Mid Anterior Amniotic Membrane Status: Ruptured Rupture Method: Spontaneous Amniotic Fluid: Clear Monitor Mode: External Contraction Frequency(min): irregular Contraction Duration(sec): 60 Contraction Intensity: Mild/Moderate Fetus A Heart Rate Baseline: 150 Monitor Accelerations: 10 X 10 Monitor Decelerations: None Variability: Moderate (6-25 BPM) Categories: Category I Est. Weight: 8 lb 8 oz Date of Membrane Rupture: 10/28/23 Time of Membrane Rupture: 19:30 HEENT Exam HEENT Exam: Normal Neck Exam Neck Exam: Normal (visual exam) Chest/Brest/Axilla Exam Chest Exam: Not Done Breast Exam Breast Exam: Not Done Respiratory Exam Respiratory Exam: Normal Cardiovascular Exam Cardiovascular Exam: Normal Abdominal Exam Abdominal Exam: Normal (gravid uterus, fetus palpates LOP) Rectal Exam Rectal Exam: Not Done Exam Exam: Normal Extremities Exam Extremities Exam: Normal Back/Spine/Pelvis Exam Back Exam: Normal Pelvis Adequate: Yes Skin Exam Skin Exam: Normal Neurological Exam Neurological Exam: Normal Psychiatric Exam Psychiatric Exam: Normal Results Results Group Beta Strep: Positive Blood Type: A+ Rubella Status: Immune Varicella Immunity: Immune Lab Results: cfDNA abnormal, amniocentesis [id number] pediatrics aware, early 1 hour 105, HIV neg, Syphilis neg, Hep B and C neg, CF neg, SMA neg, 1 hour at 28 weeks 97, GC CT neg Risk Assessment Risk for Shoulder Dystocia Historical/Initial OB: POSITIVE FOR: Pre- BMI>30; NEGATIVE FOR: Pelvic Abnormality, Previous Shoulder Dystocia or Previous Macrosomia 36 Weeks: NEGATIVE FOR: Current Gestational DM, EFW>4500gms or Maternal Weight Gain>40lbs 40 Weeks: NEGATIVE FOR: EFW> 4500 gms, Maternal Weight Gain >40lb or Post Dates Delivery Plan @ 36wks: spont labor, , proven to 8'10 Delivery Plan @ 40 wks: NVD expected. Risk for Pre-Eclampsia Yes, if one or more: NEGATIVE FOR: Hx Pre-E/Gest HTN, Chronic HTN, Multiple Gestation, Pre-gestational DM, Renal Disease, Systemic Lupus or APA Syndrome Yes, if 2 or more: POSITIVE FOR: BMI>30; NEGATIVE FOR: Nulliparity, Age>= 35 yrs, >10yr btwn pregnancies, ethinicty, Mother/Sister w/ Pre-E or Previous IUGR Risk for Post- Hemorrhage Initial: NEGATIVE FOR: Multiple Gestation, Previous PPH, Known Clotting Deficiency, Grand Multiparity or Anticoagulation 36 Weeks: NEGATIVE FOR: Anemia, hgb<10, Low platelets(thrombocytopenia), Gestational HTN or Pre-E, Polyhydraminios or EFW>4500gms 40 Weeks: NEGATIVE FOR: Anemia, hgb<10, Low platelets (thrombocytopenia), Gestation HTN or Pre-E, Polyhydraminios or EFW>4500gms Counseled re: Active Management: Yes Date/Initials: 10/28/23 Risks Reviewed Risks Reviewed Upon Admission: Yes (history of 9lb baby by C/S due to face presentation, NVD of 8lb10 prior )
[2023-10-28 23:02] VITALS: BP 111/69; PULSE 89; RESP 18; TEMP 36.6
[2023-10-28 23:10] LABS: ROM Plus Positive
[2023-10-28] MEDS: Penicillin G POT. 5,000,000 UNITS in Normal Saline 100 ML 200 UNITS IVPB (23:16)
--- NOTE | 2023-10-28 23:32 | ANES.PREOP_ITS ---
General Info Date of Service Date Performed: 10/28/23 Height: 5 ft 5 in Weight: 105.687 kg Body Mass Index (BMI): 38.7 Meds Allergies and Home Medications Allergies Allergy/AdvReac Type Severity Reaction Status Date / Time nickel Allergy Intermediate RASH Verified 10/28/23 23:06 Home Medication Medication Instructions Recorded albuterol sulfate 90 mcg/actuation 2 puff inhalation Q4H PRN ##1 01/06/15 aerosol inhaler (Proventil HFA) montelukast 10 mg tablet 10 mg PO HS PRN #90 tabs 07/28/19 (Singulair) prenat.vits,amalia,hbl-dptn-tofng 1 tab PO DAILY 02/22/23 Current Visit Medications: Current Medications Generic Name Dose Route Start Last Admin Trade Name Freq PRN Reason Stop Dose Admin Penicillin G Potassium 3,000, 50 mls @ 100 mls/hr 10/29/23 02:30 000 units/ Sodium Chloride IVPB Q4H JAMES IV Miscellaneous Supplies 1 each 10/28/23 22:30 Iv Access IV DIRECTED JAMES Sodium Chloride 0 ml 10/28/23 22:27 Normal Saline Flush 10 Ml Syr IVP PRN PRN Sodium Chloride 0 ml 10/29/23 08:30 Normal Saline Flush 10 Ml Syr IVP BID JAMES Sodium Chloride 0 ml 10/28/23 22:27 Normal Saline 10 Ml Vial IJ DIRECTED PRN PFSH Active Problems Active Problems: Problem Status Onset Code Full-term PROM with onset of labor within 24 hours of rupture O42.02 Group B Streptococcus carrier, +RV culture, currently O99.820 Amniotic fluid index increased O40.9XX0 Abnormal chromosomal and genetic finding on screening mother O28.5 Z34.90 History of delivery affecting O34.219 De Quervain's tenosynovitis, right M65.4 De Quervain's tenosynovitis, left M65.4 Obesity E66.9 History of concussion Z87.820 Asthma 07/18/12 J45.909 Medical History Medical History Family history of thyroid disease in father Enlarged lymph node in neck membranes, rupture Right groin mass Gingivitis Hyperlipidemia Dyspepsia Inguinal lymphadenopathy Fibrocystic breast changes Headache (08/19/14) after concussion Abdominal pain (05/21/13) Likely IBS - visceral hypersensitivity. Full eval with [facility] [place] 2013 Asthma Fibrocystic disease of breast Seen Dr Mega Brice Surgical History Surgical History Status post primary low transverse section Tonsillectomy 03/2013 Tobacco Smoking/Tobacco Use Status: Never Alcohol Alcohol Intake: former Details: ONE DRINK A WEEK Substance Use Substance use: Never Substance use type: does not use Prental History History 2 3 Para 2 Hx # Term Pregnancies 2 Multiple births 0 Hx # Pregnancies 0 Ectopic pregnancies 0 AB induced 0 Hx Number of Living Children 2 AB spontaneous 0 Past Pregnancies Del. Date GA/Weeks # Preg Succ Route Wgt Sex Labor Lgth Anesth esia Location Prov Complic 06/18/19 40 No Yes vaginal 3912.234 g Male 10.5 K. Radhika jacinto CNM 03/25/21 40 No Yes 4184.39 g Female 25 hrs long Jimbo Wood CNM, Dr. Hernandez for C/S, no complications Delivery Date: 06/18/19 Last Updated by: Delphine Chacon Nitrous, 2nd degree lac, short cord, Rosnebaum Delivery Date: 03/25/21 Last Updated by: Delphine Chacon persistent OP, pit jun, C/S @ 6 cm arrest of dilation Tee Vital Signs and Lab Results Vital Signs Most Recent Vital Signs in EMR: Most Recent Vital Signs Temp Pulse Resp BP 36.6 C 89 18 111/69 10/28/23 23:02 10/28/23 23:02 10/28/23 23:02 10/28/23 23:02 Lab Results 10/28/23 23:22 Blood Type / Crossmatch: 2 Patient ABO/Rh A Positive 10/28/23 Antibody Screen NEGATIVE 10/28/23 Complete Blood Count: 2 White Blood Count 16.49 10^3/uL (4.4-10.8) H 10/28/23 23:22 Red Blood Count 3.97 10^6/uL (3.93-5.22) 10/28/23 23:22 Hemoglobin 10.7 g/dL (11.2-15.7) L 10/28/23 23:22 Hematocrit 32.8 % (36.0-46.0) L 10/28/23 23:22 Platelet Count 175 10^3/uL (130-400) 10/28/23 23:22 Complete Metabolic Panel: 2 No Data to Display Liver Function Panel: 2 No Data to Display Coagulation Panel: 2 No Data to Display Cardiac Panel: 2 No Data to Display Arterial Blood Gas: 2 No Data to Display Venous Blood Gas: 2 No Data to Display Pancreas Panel: 2 No Data to Display Thyroid Panel: 2 No Data to Display Infectious Disease: 2 Coronavirus (COVID-19)(PCR) Negative (Negative) 10/28/23 23:15 Coronavirus 2019 Source Nasal/Nares 10/28/23 23:15 Blood Cultures: 2 No Data to Display Toxicology Panel: 2 No Data to Display Panel: 2 No Data to Display Anesthesia Assessment and Plan Anesthesia History Personal History: No History of Anesthesia Complications Family History: No Family History of Anesthesia Complications Exercise Tolerance Exercise Tolerance: Metabolic Equivalents>4 Pertinent Negatives Pertinent Negatives: No Major Cardiovascular Symptoms or Complaints and No Major Pulmonary Symptoms or Complaints Cardiac & Pulmonary Exam Cardiac Exam: Normal S1/S2 Heart Sounds Pulmonary Exam: Clear Bilateral Breath Sounds Implantable Cardiac Device Does patient have a Pacemaker or an ICD?: No Airway Exam Known Difficult Airway: No Mallampati Class: 2 Mouth Opening: Normal (> 3cm) Thyromental Distance: Greater than 3 cm Neck Range of Motion: Full ROM Neck Circumference: Normal Teeth Condition: Normal Dentition ASA Classification ASA Score: ASA 2 Emergency Case?: No NPO Status NPO Status: Full Stomach Status Status: Confirmed Anesthesia Plan Resuscitation Status: Full Code Anesthesia Technique: Spinal Anesthesia Airway Planned: Natural Airway Pain Management: Intrathecal Analgesia Monitors Used: Standard Monitors Preoperative Comments:: with current augmentation, 20g IV to left hand. Met at bedside, eating breakfast, and plan for vaginal delivery with no intervention currently. Consent completed for SAB and GA if needed.
[2023-10-28 23:33] LABS: HCT 32.8 % (36.0-46.0); HGB 10.7 g/dL (11.2-15.7); MCHC 32.6 % (32.0-36.0); MCV 83 fL (80-95); Platelet Count 175 10^3/uL (130-400); RBC 3.97 10^6/uL (3.93-5.22); RDW 14.6 % (11.7-14.6); RDW-SD 43.9 fL; WBC 16.49 10^3/uL (4.4-10.8)
[2023-10-29] VITALS (17 sets, daily range): BP systolic 111–139; BP diastolic 61–89; PULSE 74–109; RESP 16–21; TEMP 36.6–37.2; O2SAT 97–99; BMI 38.7
[2023-10-29 01:13] LABS: Source Nasal/Nares
[2023-10-29 01:48] LABS: COVID-19 PCR Negative (Negative)
[2023-10-29] MEDS: Normal Saline Flush 10 ML SYR IVP ×3 (04:00→20:30)
[2023-10-29] MEDS: Penicillin G POT. 3,000,000 UNITS in Normal Saline 50 ML 100 UNITS IVPB ×3 (04:01→11:49)
[2023-10-29] MEDS: Acetaminophen 325 MG TAB 650 MG PO (06:12)
--- NOTE | 2023-10-29 06:22 | PGE_ITS ---
Date of service: 10/29/23 Time of Service: 06:22 Informed Consent Informed Consent: Vaginal after (Ktaarina is aware of risks and benefits as well as alternatives to /TOLAC and desires trial of labor) Pelvic Exam Comments: deferred Contractions Monitor Mode: External Contraction Frequency(min): irregular Contraction Duration(sec): irregular Intensity: Mild Fetus A Monitor: Novii Heart Rate Baseline: 140 Variability: Moderate (6-25 BPM) Categories: Category I Decelerations: None Amniotic Membrane Status: Ruptured Rupture Method: Spontaneous Amniotic Fluid: Clear Date of Membrane Rupture: 10/28/23 Time of Membrane Rupture: 19:30 Assessment and Plan Assessment and plan (1) Full-term PROM with onset of labor within 24 hours of rupture: Status: Acute Assessment and plan: 1. We discussed augmentation of labor with pitocin and patient is agreeable to this plan. Prefers augmentation over repeat C/S. Risks, benefits and alternatives have been reviewed. Denies questions. 2. Receiving PCN every 4 hours due to GBS + 3. Tylenol 650 mg PO for LOUISE 4. Will await ELECTROMECHANICAL ASSEMBLY TECHNICIAN and OR arrival this morning to begin pitocin. This plan was reviewed with Dr. Hernandez earlier and she agreed to augmentation. KH Objective Abnormal lab results 10/28/23 Range/Units 23:22 WBC 16.49 H (4.4-10.8) 10^3/uL Hgb 10.7 L (11.2-15.7) g/dL Hct 32.8 L (36.0-46.0) % MPV 12.0 H (8.0-11.0) fL Temp Pulse Resp BP Pulse Ox 98.0 F 88 18 121/62 18 L 10/29/23 05:33 10/29/23 05:33 10/28/23 23:02 10/29/23 05:33 10/28/23 22:52 Laboratory Results WBC 16.49 10^3/uL (4.4-10.8) H 10/28/23 23:22 RBC 3.97 10^6/uL (3.93-5.22) 10/28/23 23:22 Hgb 10.7 g/dL (11.2-15.7) L 10/28/23 23:22 Hct 32.8 % (36.0-46.0) L 10/28/23 23:22 MCV 83 fL (80-95) 10/28/23 23:22 MCH 27.0 pg (27.0-33.0) 10/28/23 23:22 MCHC 32.6 % (32.0-36.0) 10/28/23 23:22 RDW 14.6 % (11.7-14.6) 10/28/23 23:22 Plt Count 175 10^3/uL (130-400) 10/28/23 23:22 MPV 12.0 fL (8.0-11.0) H 10/28/23 23:22 Membranes Rupture Positive 10/28/23 22:45 COVID-19 Source Nasal/Nares 10/28/23 23:15 SARS-CoV-2 (PCR) Negative (Negative) 10/28/23 23:15 Patient ABO/Rh A Positive 10/28/23 23:22 Antibody Screen NEGATIVE 10/28/23 23:22 Vital Signs Reviewed: Yes Subjective Interval history since last seen: Katarina is doing well. She continues to have some contractions but they are not increasing in intensity or frequency. She had a slight LOUISE due to not sleeping. Tylenol ordered. Katarina and Gabino would like to augment labor with pitocin when able. KH Results Hemoglobin/Hematocrit: Hgb 10.7 g/dL (11.2-15.7) L 10/28/23 23:22 Hct 32.8 % (36.0-46.0) L 10/28/23 23:22 Abnormal Lab Findings: Abnormal Labs 10/28/23 23:22 WBC 16.49 H Hgb 10.7 L Hct 32.8 L MPV 12.0 H
[2023-10-29] MEDS: Oxytocin/Normal Saline 30 UNIT/500 ML BAG 2 UNITS IV (07:56)
--- NOTE | 2023-10-29 08:57 | OBCE_ITS ---
Date of service: 10/29/23 Time of Service: 08:57 Assessment and Plan Assessment and plan (1) : Status: Acute Assessment and plan: Patient is at 40 weeks and 1 day with spontaneous rupture of membranes and group B strep positivity. She has received antibiotic prophylaxis appropriately. She is in early active labor and will be augmented with Pitocin and continuous monitoring. My anticipation would be for a vaginal , however she is prepared for section if there are or maternal indications. (2) History of delivery affecting : Status: Acute Assessment and plan: Previous low-transverse section, appropriate candidate for vaginal after section. 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 Pediatrics is aware (4) Group B Streptococcus carrier, +RV culture, currently : Status: Acute Assessment and plan: Appropriate prophylaxis (5) Full-term PROM with onset of labor within 24 hours of rupture: Status: Acute Assessment and plan: Pitocin augmentation History of Present Illness History of Present Illness Chief Complaint: Rupture of membranes Narrative: Patient is a 33-year-old female 3 para 2 with 1 previous vaginal delivery followed by section due to malpresentation with a face presentation in labor arrest at 6 cm. Has had a relatively uncomplicated with the exception of a triple X female. She has had maternal- medicine evaluation for this reason. She has had a previous section and is a good candidate for vaginal after section. She had spontaneous rupture of membranes greater than 12 hours ago. She did present shortly after rupture of membranes for antibiotic prophylaxis due to group B strep positivity. She was having painful though somewhat irregular contractions throughout the night. Due to the irregular contraction pattern, Pitocin augmentation of labor will be performed. She does understand that this increases her from a low risk to a moderate risk. We do have an OR set aside for her, anesthesia is aware and consulting with the patient, and or crew is available. I will also be available for any needs upcoming. Patient understands well her risks, benefits, and alternatives. In light of the slightly irregular contraction pattern, Pitocin augmentation is warranted. Patient is not a candidate for transfer to a tertiary care facility regardless due to weather conditions today and last night. At this point, she has a reassuring maternal and status. All questions were answered. Consults Consult date: 10/29/23 Requesting physician: Valeria Sosa Review of Systems Narrative: Alert, oriented, no acute distress Constitutional Constitutional: Reports system reviewed and no additional complaints, except as documented ENT Ears, Nose, Mouth, and Throat: Reports system reviewed and no additional complaints, except as documented Cardiovascular Cardiovascular: Reports system reviewed and no additional complaints, except as documented Respiratory Respiratory: Reports system reviewed and no additional complaints, except as documented Neurologic Neurologic: Reports system reviewed and no additional complaints, except as documented PFSH All Active Problems (Updated 10/28/23 @ 23:09 by Valeria Sosa CNM) Full-term PROM with onset of labor within 24 hours of rupture (Acute) Group B Streptococcus carrier, +RV culture, currently (Acute) Amniotic fluid index increased (Acute) Abnormal chromosomal and genetic finding on screening mother (Acute) Amnio to be done @ [facility] [place] 05/16/23 (Acute) History of delivery affecting (Acute) De Quervain's tenosynovitis, right (Acute) Depo-Medrol injection: 07/18/2021 De Quervain's tenosynovitis, left (Acute) Depo-Medrol injection: 06/06/2021 Obesity (Chronic) History of concussion (Chronic) Asthma (Acute 07/18/12) MILD to mod persistent Medical History Family history of thyroid disease in father Enlarged lymph node in neck membranes, rupture Right groin mass Gingivitis Hyperlipidemia Dyspepsia Inguinal lymphadenopathy Fibrocystic breast changes Headache (08/19/14) after concussion Abdominal pain (05/21/13) Likely IBS - visceral hypersensitivity. Full eval with [facility] [place] GI 2013 Asthma Fibrocystic disease of breast Seen Dr Mega Brice Surgical History Status post primary low transverse section Tonsillectomy 03/2013 Family History Maternal Grandfather Colon cancer Paternal Grandfather Prostate cancer Maternal Grandmother Cervical cancer Bladder cancer Paternal Grandmother Lung cancer Father Thyroid disease Social History Smoking/Tobacco Use Status: Never Smoking risk assessment performed?: Yes Alcohol Intake: former Details: ONE DRINK A WEEK Drug use: Never Substance use type: does not use Household members: spouse Number of Children: 0 What type of physical activity do you participate in: walking Duration: 30-45 minutes/day Frequency: daily Seatbelt use: always Do you feel safe in your relationship?: Yes Female Reproductive History Menstrual control method: none History History 2 3 Para 2 Hx # Term Pregnancies 2 Multiple births 0 Hx # Pregnancies 0 Ectopic pregnancies 0 AB induced 0 Hx Number of Living Children 2 AB spontaneous 0 Past Pregnancies Del. Date GA/Weeks # Preg Succ Route Wgt Sex Labor Lgth Anesth esia Location Prov [facility] 06/18/19 40 No Yes vaginal 8 lb 10 oz Male 10.5 KToo jacinto CNM 03/25/21 40 No Yes 9 lb 3.6 oz Female 25 hrs long iJmbo Wood CNM, Dr. Hernandez for C/S, no complications Delivery Date: 06/18/19 Last Updated by: Delphine Chacon Nitrous, 2nd degree lac, short cord, Rosenbaum Delivery Date: 03/25/21 Last Updated by: Delphine Chacon persistent OP, pit aug, C/S @ 6 cm arrest of dilation Tee Exam Narrative Exam Narrative: Alert, oriented, no acute distress Const General: cooperative, healthy appearing, comfortable and no acute distress Nutritional Appearance: average body habitus Eyes General: appearance normal, both eyes and all related structures Resp Effort & Inspection: normal respiratory effort and no cough Cardio Rate: regular rate Rhythm: regular rhythm Extrem General: normal to inspection Psych Appearance: grossly normal Mental Status: mental status grossly normal Thought Content: normal Insight: insight good Judgment: judgment good Results Last Vital Signs Temp 97.9 F 10/29/23 07:55 Pulse 86 10/29/23 08:06 Resp 16 10/29/23 07:55 BP 129/76 10/29/23 08:06 Pulse Ox 98 10/29/23 08:06 Labs 10/28/23 23:22 Labs: Laboratory Results - last 24 hr 10/28/23 10/28/23 10/28/23 22:45 23:15 23:22 WBC 16.49 H RBC 3.97 Hgb 10.7 L Hct 32.8 L MCV 83 MCH 27.0 MCHC 32.6 RDW 14.6 Plt Count 175 MPV 12.0 H Membranes Rupture Positive COVID-19 Source Nasal/Nares SARS-CoV-2 (PCR) Negative Patient ABO/Rh A Positive Antibody Screen NEGATIVE
--- NOTE | 2023-10-29 09:47 | W.PM.OBNL1 ---
Date of service: 10/29/23 Time of Service: 09:48 Informed Consent Informed Consent: Vaginal after (Katarina is aware of risks and benefits as well as alternatives to /TOLAC and desires trial of labor) Pelvic Exam Comments: deferred, plan to check cervix when patient begins to feel need for nitrous oxide or pain management. Contractions Monitor Mode: External Contraction Frequency(min): 4 Contraction Duration(sec): 50-80 Intensity: Mild/Moderate Fetus A Monitor: Novii Heart Rate Baseline: 135 Variability: Moderate (6-25 BPM) Accelerations: Present Decelerations: None Assessment and Plan Assessment and plan (1) Full-term PROM with onset of labor within 24 hours of rupture: Status: Acute Assessment and plan: 1. Oxytocin augmentation being done, patient is feeling stronger and regular contractions 2. SCIENTIST has been present to consent patient for anesthesia if needed 3. Dr. Hernandez is aware of patient status and has also visited with patient this morning 4. Support labor and expect NVD. KH Objective Abnormal lab results 10/28/23 Range/Units 23:22 WBC 16.49 H (4.4-10.8) 10^3/uL Hgb 10.7 L (11.2-15.7) g/dL Hct 32.8 L (36.0-46.0) % MPV 12.0 H (8.0-11.0) fL Temp Pulse Resp BP Pulse Ox 97.9 F 86 16 129/76 98 10/29/23 09:00 10/29/23 08:06 10/29/23 07:55 10/29/23 08:06 10/29/23 08:06 Laboratory Results WBC 16.49 10^3/uL (4.4-10.8) H 10/28/23 23:22 RBC 3.97 10^6/uL (3.93-5.22) 10/28/23 23:22 Hgb 10.7 g/dL (11.2-15.7) L 10/28/23 23:22 Hct 32.8 % (36.0-46.0) L 10/28/23 23:22 MCV 83 fL (80-95) 10/28/23 23:22 MCH 27.0 pg (27.0-33.0) 10/28/23 23:22 MCHC 32.6 % (32.0-36.0) 10/28/23 23:22 RDW 14.6 % (11.7-14.6) 10/28/23 23:22 Plt Count 175 10^3/uL (130-400) 10/28/23 23:22 MPV 12.0 fL (8.0-11.0) H 10/28/23 23:22 Membranes Rupture Positive 10/28/23 22:45 COVID-19 Source Nasal/Nares 10/28/23 23:15 SARS-CoV-2 (PCR) Negative (Negative) 10/28/23 23:15 Patient ABO/Rh A Positive 10/28/23 23:22 Antibody Screen NEGATIVE 10/28/23 23:22 Subjective Interval history since last seen: Katarina is feeling regular contractions, doing well. Using birthing ball. Her IV had infiltrated but is restarted and she is responding well to pitocin at this time. KH Results Hemoglobin/Hematocrit: Hgb 10.7 g/dL (11.2-15.7) L 10/28/23 23:22 Hct 32.8 % (36.0-46.0) L 10/28/23 23:22 Abnormal Lab Findings: Abnormal Labs 10/28/23 23:22 WBC 16.49 H Hgb 10.7 L Hct 32.8 L MPV 12.0 H
--- NOTE | 2023-10-29 11:51 | W.PM.OBNL1 ---
Date of service: 10/29/23 Time of Service: 11:30 Informed Consent Informed Consent: Vaginal after (Katarina is aware of risks and benefits as well as alternatives to /TOLAC and desires trial of labor) Pelvic Exam Dilation: 6 Effacement (%): 90 station: -2 Cervix Position: posterior Consistency: soft Contractions Monitor Mode: External Contraction Frequency(min): 3-4 Contraction Duration(sec): 60-80 Intensity: Moderate/Strong Fetus A Monitor: Novii Heart Rate Baseline: 135 Variability: Moderate (6-25 BPM) Accelerations: Present Decelerations: Variable (occasional) Assessment and Plan Assessment and plan (1) Full-term PROM with onset of labor within 24 hours of rupture: Status: Acute Assessment and plan: 1. Making good progress in labor 2. Has had adequate GBS prophylaxis 3. Continue to support labor and expect NVD. 4. Maintain pitocin at 14 mu at this time 5. Expect NVD. KH Objective Abnormal lab results 10/28/23 Range/Units 23:22 WBC 16.49 H (4.4-10.8) 10^3/uL Hgb 10.7 L (11.2-15.7) g/dL Hct 32.8 L (36.0-46.0) % MPV 12.0 H (8.0-11.0) fL Temp Pulse Resp BP Pulse Ox 97.9 F 80 16 115/71 99 10/29/23 11:30 10/29/23 11:30 10/29/23 11:30 10/29/23 11:30 10/29/23 11:30 Laboratory Results WBC 16.49 10^3/uL (4.4-10.8) H 10/28/23 23:22 RBC 3.97 10^6/uL (3.93-5.22) 10/28/23 23:22 Hgb 10.7 g/dL (11.2-15.7) L 10/28/23 23:22 Hct 32.8 % (36.0-46.0) L 10/28/23 23:22 MCV 83 fL (80-95) 10/28/23 23:22 MCH 27.0 pg (27.0-33.0) 10/28/23 23:22 MCHC 32.6 % (32.0-36.0) 10/28/23 23:22 RDW 14.6 % (11.7-14.6) 10/28/23 23:22 Plt Count 175 10^3/uL (130-400) 10/28/23 23:22 MPV 12.0 fL (8.0-11.0) H 10/28/23 23:22 Membranes Rupture Positive 10/28/23 22:45 COVID-19 Source Nasal/Nares 10/28/23 23:15 SARS-CoV-2 (PCR) Negative (Negative) 10/28/23 23:15 Patient ABO/Rh A Positive 10/28/23 23:22 Antibody Screen NEGATIVE 10/28/23 23:22 Subjective Interval history since last seen: Working with Nitrous to get through contractions. Wanted VE. KH Results Hemoglobin/Hematocrit: Hgb 10.7 g/dL (11.2-15.7) L 10/28/23 23:22 Hct 32.8 % (36.0-46.0) L 10/28/23 23:22 Abnormal Lab Findings: Abnormal Labs 10/28/23 23:22 WBC 16.49 H Hgb 10.7 L Hct 32.8 L MPV 12.0 H
--- NOTE | 2023-10-29 12:43 | PLAC_PTH ---
PATIENT: Katarina Sánchez LOC: OBS U#:[id number] AGE/SX: 33/F ROOM: OBS.300 RE10/28/[address]: Valeria Sosa CNM : 1990 BED: A DIS: 10/30/2023 SPEC #: [id number] RECD: 10/29/23 16:57 STATUS: YOLY REQ #: [id number] ONDINA: 10/29/23 12:[address]: Valeria Sosa DEPT: Surgical Specimen RECD BY: Susna Saunders ENTERED: 10/29/23 16:57 SP TYPE: PLAC OTHR DR: Estela Gerber Tissues: 1 - PLACENTA (NOT 3RD TRIMESTER) CHROMOSOME ANALYSIS PROFILE Procedures: GROSS AND MICRO LEVEL 5 CHROMOSOME ANALYSIS 15-20 CELLS CHROMOSOME ANALYSIS TISSUE CULTURE Comments: [id number] (CYTOGENETICS [id number])
--- NOTE | 2023-10-29 13:45 | OBVDS_ITS ---
Date of service: 10/29/23 Time of Service: 13:45 OB Labor/ Delivery Information Baby A Delivery Delivery Method: Spontaneaous Presentation: Cephalic Cephalic Position: Vertex Vertex Position: Left Occipital Anterior Cord Description-Baby A: 3 Vessels and Clamped/Cut Amniotic Fluid: Clear Estimated Blood Loss: 250 Delivery Outcome: Liveborn Infant Complications: known [id number] Note: Katarina Sánchez and her , Gabino, presented in the evening of 10/28/23 with SROM with early labor. She was known to be GBS + and previous LTCS. She desires TOLAC. ROM+ was positive. GBS prophylaxis was started and patient labored somewhat overnight. FHR tracing was CAT I throughout, 135 baseline. She was not in active labor in the morning of 10/29/23 and after consultation with Dr. Hernandez who was OB physician field applications specialist, decision to augment with Pitocin was made. She responded well to pitocin and was 6cm/90%/-2 at 1134. She began to push involuntarily at 1235. FHR 140's. Second stage huddle was held and Katarina pushed effectively. She delivered a live female (Irlanda) over intact perineum at 1243. Baby was brought to maternal abdomen for skin to skin. 8 and 9. After 5 minutes of delayed cord clamping, cord was double clamped and cut by Father. Positive family bonding noted. Pitocin was started per protocol IV. Placenta delivered, spontaneously at 1251, intact. Fundus firmed to U with massage. Bi- manual exam revealed no clots in vagina lower uterine segment was firm to bi- manual palpation. Placent will be sent to pathology and a small section was removed and placed in Hanks solution for cytogenetics per Asmita's choice. Samples were taken to pathology with appropriate paperwork. EBL 250cc. Sponge and instrument count were corrrect. Mya plans to breast feed Irlanda. Expect normal PP course and probable discharge in 24-48 hours. Providers Nurse Industrial Insulator: Valeria Sosa Nurse: Jeanne Kamara Nurse: Kayy Irwin Labor/Delivery Information Number of Babies in Womb: 1 Steroids Given: None Reason Steroids Not Administered: N/A Group Beta Strep: Positive Antibiotics Administered: Yes Number of Doses of Antibiotics: 4 Rubella Status: Immune Blood Type: A+ Varicella Immunity: Immune Maternal Complications: None Shoulder Dystocia: No Stages of Labor Onset of Labor Date: 10/28/23 Onset of Labor Time: 19:30 Complete Dilatation Date: 10/29/23 Complete Dilatation Time: 12:35 Labor - Stage 1 Duration: 17 hours and 5 minutes ROM Baby A: 10/28/23 ROM Baby A: 19:00 ROM Total Time- Baby A: [id number] Infant Delivery Date-Baby A: 10/29/23 Delivery Time-Baby A: 12:43 Labor Stage 2 Duration: 8 minutes Placenta Delivery Date-Baby A: 10/29/23 Placenta Delivery Time-Baby A: 12:51 Labor-Stage 3 Duration: 8 minutes Total Length of Labor-Baby A: 17 hours and 13 minutes Placenta Cultured: No Placenta Status: Delivered Baby A Infant Gender: Female Gestational Status: Term (39-41.6 wks) Gestational Age in Weeks/Days: 40 Weeks and 2 Days Length-Baby A: 20 in Score-1 Minute Interval(Baby A) Heart Rate-1 minute: 100 BPM or Greater Respiratory Effort- 1 minute: Spontaneous/Strong Cry Muscle Tone-1 minute: Active Movement Reflex Response-1 minute: Prompt Response Color-1 minute: Pallor or Cyanosis Total Score-1 minute: 8 Score-5 Minute Interval(Baby A) Heart Rate- 5 minute: 100 BPM or Greater Respiratory Effort-5 minute: Spontaneous/Strong Cry Muscle Tone-5 minute: Active Movement Reflex Response-5 minute: Prompt Response Color-5 minute: Bluish Hands or Feet Total Score- 5 minute: 9
[2023-10-30 01:56] VITALS: BP 97/72; PULSE 90; TEMP 37.3
[2023-10-30 05:40] VITALS: BP 131/74; PULSE 90; TEMP 37.2
[2023-10-30 07:50] VITALS: BP 123/88; PULSE 101; RESP 14; TEMP 36.9
--- NOTE | 2023-10-30 16:50 | W.PM.OBDISCH ---
Date of service: 10/30/23 Time of Service: 16:51 DS: Diagnosis Discharge Diagnosis (1) Term of female : Status: Acute Asessment and Plan: Caring for baby independently. Pain is managed well with oral analgesics. Voiding without difficulty. Intact perineum. well. A - stable mother and baby , Post day 1 P - Discharge to home today. Routine post instructions. [facility]. Discharge Plan Disposition Patient Disposition: Home Condition: Good Discharge Details Reason For Visit: Term Labor, Trial of Labor After Admit Date/Time: 10/28/23 22:27 Admit Provider: Valeria Sosa Attending Provider: Valeria Sosa Primary Care Provider: Estela Gerber Home Meds and New Rx's Prescriptions: No Action prenat.vits,amalia,fik-eieh-ngskt Tablet 1 tab PO DAILY albuterol sulfate [Proventil HFA] 6.7 GM HFA aerosol inhaler 2 puff Inhalation Q4H PRN Qty: 1 montelukast [Singulair] 10 mg tablet 10 mg PO HS PRNQty: 90 Discharge Instructions Stand Alone Forms: BC Instructions, BC Post Vaginal Deliver Activity:: Activity as Tolerated Equipment/Supplies:: Blood Glucose Monitor Diet:: As Tolerated Discharge Orders Discharge Orders: Discharge Order (Routine); Ordered 10/30/23 Ordered By: Valeria Wood OB:DS Summary Summary Vaginal Delivery Method: Spontaneaous Episiotomy Description: None Laceration Description: None Laceration Extension: N/A Contraception Discussed Contraception Discussed: No, [place] Gender-Baby A: Female weight: 8 lb 4.454 oz Status at Discharge Functional status at discharge: independent ambulation Overall status at discharge: patient is back to baseline Mental Status: mental status grossly normal Speech and Movement: speech and movement normal Mood: congruent mood Affect: normal affect Exam Physical Exam Vital signs: Temp Pulse Resp BP Pulse Ox 98.4 F 101 H 14 123/88 97 10/30/23 07:50 10/30/23 07:50 10/30/23 07:50 10/30/23 07:50 10/29/23 19:30 Vital Signs Reviewed: Yes Constitutional Constitutional: no acute distress HEENT Exam HEENT Exam: Normal Neck Exam Neck Exam: Normal Respiratory Exam Respiratory Exam: Normal Cardiovascular Exam Cardiovascular Exam: Normal Fundal Exam Fundus: Below Umbilicus and Firm Extremities Exam Extremity Exam: Normal Skin Exam Skin Exam: Normal Psychiatric Exam Psychiatric Exam: Normal PFSH All Active Problems (Updated 10/30/23 @ 11:24 by Valeria Wood CNM) Term of female (Acute) Medical History (Updated 10/30/23 @ 11:24 by Valeria Wood CNM) Abnormal chromosomal and genetic finding on screening mother [place] [facility] De Quervain's tenosynovitis, right Depo-Medrol injection: 07/18/2021 De Quervain's tenosynovitis, left Depo-Medrol injection: 06/06/2021 Obesity History of concussion Asthma (07/18/12) MILD to mod persistent Family history of thyroid disease in father Enlarged lymph node in neck membranes, rupture Right groin mass Gingivitis Hyperlipidemia Dyspepsia Inguinal lymphadenopathy Fibrocystic breast changes Headache (08/19/14) after concussion Abdominal pain (05/21/13) Likely IBS - visceral hypersensitivity. Full eval with [facility] [place] 2013 Asthma Fibrocystic disease of breast Seen Dr Mega Brice Surgical History (Updated 10/30/23 @ 11:24 by Valeria Wood CNM) Status post primary low transverse section Tonsillectomy 03/2013 Family History Maternal Grandfather Colon cancer Paternal Grandfather Prostate cancer Maternal Grandmother Cervical cancer Bladder cancer Paternal Grandmother Lung cancer Father Thyroid disease Social History Smoking/Tobacco Use Status: Never Smoking risk assessment performed?: Yes Alcohol Intake: former Details: ONE DRINK A WEEK Drug use: Never Substance use type: does not use Household members: spouse Number of Children: 0 What type of physical activity do you participate in: walking Duration: 30-45 minutes/day Frequency: daily Seatbelt use: always Do you feel safe in your relationship?: Yes Female Reproductive History Menstrual control method: none History History 3 Para 2 Hx # Term Pregnancies 2 Multiple births 0 Hx # Pregnancies 0 Ectopic pregnancies 0 AB induced 0 Hx Number of Living Children 2 AB spontaneous 0 Past Pregnancies Del. Date GA/Weeks # Preg Succ Route Wgt Sex Labor Lgth Anesthesia Location Prov Complic 06/18/19 40 No Yes vaginal 8 lb 10 oz Male 10.5 Jimbo Wood CNM 03/25/21 40 No Yes 9 lb 3.6 oz Female 25 hrs long Jimbo Wood CNM, Dr. Hernandez for C/S, no complications Delivery Date: 06/18/19 Last Updated by: Delphine Chacon Nitrous, 2nd degree lac, short cord, Rosenbaum Delivery Date: 03/25/21 Last Updated by: Delphine Chacon persistent OP, pit jun, C/S @ 6 cm arrest of dilation Tee DS: Data Vitals/I&O Vitals and I&O: Vital Signs Temperature 98.4 F 10/30/23 07:50 Temperature Source Oral 10/30/23 07:50 Pulse 101 H 10/30/23 07:50 Pulse Rhythm Regular 10/30/23 07:50 Respiratory Rate 14 10/30/23 07:50 Respiratory Depth Normal 10/29/23 19:30 Blood Pressure 123/88 10/30/23 07:50 Blood Pressure Mean 99 10/30/23 07:50 Pulse Oximetry 97 10/29/23 19:30 Oxygen Delivery Method Room Air 10/28/23 23:02 Oxygen Flow Rate 0 10/28/23 23:02 Pain Level 0 10/30/23 07:50 Intake & Output 10/29/23 10/30/23 10/30/23 23:59 11:59 23:59 Intake Total 1038.733 / 1400.000 Output Total 2150 / 2950 Balance -1111.267 / -1550.000 Intake: IV 538.733 / 660.000 Oral 500 / 740 Output: Urine 1900 / 2700 Blood 250 / 250 Other: Urine Color Light Ana
== END 2023-10-30 17:25 | disposition home or self-care (01) | DRG 807 ==
PROVIDERS: Admitting Provider Advanced Practice Midwife; PCP Nurse Practitioner Family; Visit Provider Advanced Practice Midwife
DX: O42.02 Full-term premature rupture of membranes, onset of labor within 24 hours of rupture (principal); Z37.0 Single live birth; O28.5 Abnormal chromosomal and genetic finding on antenatal screening of mother; Z3A.40 40 weeks gestation of pregnancy; O99.824 Streptococcus B carrier state complicating childbirth; O34.211 Maternal care for low transverse scar from previous cesarean delivery; N85.8 Other specified noninflammatory disorders of uterus; O99.52 Diseases of the respiratory system complicating childbirth; O99.214 Obesity complicating childbirth; O99.62 Diseases of the digestive system complicating childbirth; J45.909 Unspecified asthma, uncomplicated; K58.9 Irritable bowel syndrome, unspecified; O75.89 Other specified complications of labor and delivery; E78.5 Hyperlipidemia, unspecified; N60.19 Diffuse cystic mastopathy of unspecified breast
CPT/HCPCS: 36415; 84112; 85027; 86850; 86900; 86901; 87635; 88305; 88233; 88262; 88307; J2540

== ENCOUNTER 2023-11-13 16:20 | Outpatient (REF) | payer BC, SELFPAY | END 2023-11-13 16:21 | disposition home or self-care (01) | LOC: LBN 16:20 | PROVIDERS: PCP Nurse Practitioner Family; Visit Provider Advanced Practice Midwife | DX: R30.0 Dysuria (principal); R35.0 Frequency of micturition | CPT/HCPCS: 87077; 87086; 87186 ==

== ENCOUNTER → 2024-04-17 12:45 | Outpatient (CLI) | payer BC, SELFPAY ==
--- NOTE | 2024-04-17 10:55 | DI.RAD_ITS ---
Exam(s) XR CHEST 2V PA LATERAL EXAM: XR CHEST 2V PA LATERAL CLINICAL HISTORY: Asthma exacerbation, J45.901, evaluate pneumonia TECHNIQUE: 2D digital imaging was performed of the chest. Two images were obtained. PA and lateral views were obtained. COMPARISON: CR CHEST 2 VIEWS PA,LAT from 07/10/2014 FINDINGS: MEDIASTINUM: Normal. HEART: Normal. PULMONARY VASCULATURE: Normal. LUNGS: There is an infiltrate in the right lung base medially. This may lie within the right middle lobe. PLEURAL SPACE: No pleural effusion or pneumothorax. BONE:Within normal limits for the patient's age. OTHER FINDINGS:There is mild elevation of the right hemidiaphragm. IMPRESSION: Infiltrate in the medial aspect of the right lung base probably within the right middle lobe. Findin gs are suspicious for pneumonia. DATA REPOSITORY: RADIATION DOSE DELIVERED:
== END ==
PROVIDERS: PCP Nurse Practitioner Family; Visit Provider Nurse Practitioner Family
DX: J45.901 Unspecified asthma with (acute) exacerbation (principal); R91.8 Other nonspecific abnormal finding of lung field
CPT/HCPCS: 71046

== ENCOUNTER → 2024-05-14 10:30 | Outpatient (CLI) | payer BC, SELFPAY ==
--- NOTE | 2024-05-14 11:05 | DI.RAD_ITS ---
Exam(s) XR RIBS LT W PA LAT CHEST CLINICAL HISTORY PLEURODYNIA R07.81. COMPARISON: CR XR CHEST 2V PA LATERAL from 04/17/2024 TECHNIQUE:: PA and lateral views of the chest and four views of the left ribs were performed. FINDINGS: LUNGS: Clear. No pleural abnormality seen. HEART: Normal. MEDIASTINUM: Normal. BONES: No displaced rib fracture is seen. No compression fractures are seen in the thoracic spine. No bony destructive lesion is seen. OTHER FINDINGS: None. IMPRESSION: 1. Unremarkable radiographic appearance of the left ribs. 2. No acute pulmonary findings.
== END ==
PROVIDERS: PCP Nurse Practitioner Family; Visit Provider Nurse Practitioner Family
DX: R07.81 Pleurodynia (principal)
CPT/HCPCS: 71046; 71100

== ENCOUNTER 2024-06-09 13:51 | Outpatient (REF) | payer BC, SELFPAY ==
[2024-06-09 15:10] LABS: Calculated LDL 142 mg/dL (<100); Cholesterol 223 mg/dL (<200); HDL Cholesterol 63 mg/dL (40-60); Triglyceride 90 mg/dL (<150)
== END 2024-06-09 13:52 | disposition home or self-care (01) ==
LOC: NCHCN 13:51
PROVIDERS: PCP Nurse Practitioner Family; Visit Provider Nurse Practitioner Family
DX: E78.5 Hyperlipidemia, unspecified (principal)
CPT/HCPCS: 80061

== ENCOUNTER 2025-07-13 09:31 | Outpatient (CLI) | payer OTHER, SELFPAY ==
--- NOTE | 2025-07-13 08:45 | DI.RAD_ITS ---
Exam(s) XR WRIST LT COMPLETE EXAM: XR WRIST LT COMPLETE CLINICAL HISTORY: pain. TECHNIQUE: 2D digital imaging was performed of the left wrist. Three images were obtained. PA, oblique and lateral views were obtained. COMPARISON: No exams were available for comparison FINDINGS: BONES: No acute fracture is present. No bony destructive lesion is seen. There is an old well corticated osseous density at the tip of the ulnar styloid process which likely reflects prior injury. There is a bone island in the capitate. JOINTS: The carpal bones are normally aligned. SOFT TISSUE: Normal. IMPRESSION: No acute abnormality. If there is concern for internal derangement, an MRI should be considered for further evaluation. DATA REPOSITORY: RADIATION DOSE DELIVERED:
== END 2025-07-13 09:32 | disposition home or self-care (01) ==
LOC: DIORS 09:32
PROVIDERS: PCP Nurse Practitioner Family; Visit Provider Physician Assistant
DX: M65.4 Radial styloid tenosynovitis [de Quervain] (principal)
CPT/HCPCS: 73110

== ENCOUNTER 2025-10-19 12:02 | Outpatient (REF) | payer OTHER, SELFPAY ==
[2025-10-19 16:07] LABS: TSH (W/Ref FT4) 0.79 uIU/mL (0.55-4.78)
== END 2025-10-19 12:03 | disposition home or self-care (01) ==
LOC: NCHCN 12:02
PROVIDERS: PCP Nurse Practitioner Family; Visit Provider Nurse Practitioner Family
DX: Z83.49 Family history of other endocrine, nutritional and metabolic diseases (principal)
CPT/HCPCS: 84443